=== PATIENT | female | born 1965 | race African-American/Black ===

== ENCOUNTER 2017-07-17 10:37 | Inpatient (IN) | payer OTHER, SELFPAY ==
[2017-07-17] MEDS ORDERED: Nitroglycerin 0.4 MG TAB (25 Tab Bottle) ONE (11:32)
[2017-07-17] MEDS ORDERED: Acetaminophen 500 MG TAB ONE (11:32)
[2017-07-17] MEDS ORDERED: Lidocaine Viscous Sol 2% 15 ml UD Cup ONE (11:32)
[2017-07-17] MEDS ORDERED: Mag-Al 1200 mg/1200 mg/30 ML UDCUP ONE (11:32)
[2017-07-17 11:57] LABS: #Basophils 0.1 thou/uL (0.0-0.2); #Eosinphils 0.1 thou/uL (0.0-0.7); #Lymphocytes 2.5 thou/uL (1.20-3.40); #Monocytes 0.5 thou/uL (0.11-0.59); #Neutrophils 4.1 thou/uL (1.40-6.50); %Basophils 0.9 % (0.0-1.0); %Eosinophils 1.6 % (0.0-10.0); %Lymphocytes 34.3 % (21.0-51.0); %Monocytes 6.4 % (0.0-10.0); Hematocrit 47.1 % (36.0-47.0); Mean Platelet Volume 8.4 fL (7.4-10.4); Red Blood Cell (RBC) Count 5.23 mill/uL (4.20-5.40); White Blood Cell (WBC) Count 7.1 thou/uL (4.8-10.8)
[2017-07-17 12:19] LABS: ALT (SGPT) 8 U/L (8-55); AST (SGOT) 18 U/L (5-34); Alkaline Phosphatase 123 U/L (40-150); Anion Gap 16 mmol/L (10-20); BUN (Urea Nitrogen) 11 mg/dL (9.8-20.1); Bilirubin, Total 0.7 mg/dL (0.2-1.2); CK (CPK) 110 U/L (29-168); Calc. Creatinine Clearance 0 mL/min (70-130); Calcium 9.9 mg/dL (7.8-10.44); Carbon Dioxide 20 mmol/L (22-29); Chloride 108 mmol/L (98-107); Estimated GFR-MDRD Greater than 90; Globulin 3.8 g/dL (2.4-3.5); Lipase 13 U/L (8-78); Protein, Total 7.7 g/dL (6.0-8.3)
--- NOTE | 2017-07-17 13:32 | RAD ---
PORTABLE AP CHEST XRAY: DATE: 07/17/17. HISTORY: Chest pain and burning sensation that started this morning. COMPARISON: 05/08/17. FINDINGS: Dual-lead left subclavian cardiac pacemaking device remains in place. Cardiac silhouette remains en larged. The pulmonary vasculature is within normal limits. There is mild prominence of the pulmona ry vasculature on the prior exam. There has been no other interval change from the prior study. IMPRESSION: 1. No acute cardiopulmonary process. 2. Mild cardiomegaly without overt congestive heart failure. POS: [facility]
[2017-07-17 15:51] LABS: Troponin I Less than 0.010 ng/mL (< 0.028)
[2017-07-17] MEDS ORDERED: ISOVUE-370 76%-LOCM 1 ML ONE (16:46)
[2017-07-17] MEDS ORDERED: Ondansetron HCl/PF 4 MG/2 ML Vial IVP PRN ×2 (16:57→17:02)
[2017-07-17] MEDS ORDERED: Ondansetron ODT 4 MG TAB SL PRN (16:57)
[2017-07-17] MEDS ORDERED: Nitroglycerin 0.4 MG TAB (25 Tab Bottle) PO PRN (17:02)
[2017-07-17] MEDS ORDERED: Morphine Sulfate 2 MG/ML SYRINGE SLOW IVP PRN (17:02)
[2017-07-17 17:09] VITALS: BMI 37.3
[2017-07-17] MEDS ORDERED: Aspirin 300 MG Suppository PR SCH (17:15)
--- NOTE | 2017-07-17 17:38 | CT ---
CONTRAST ENHANCED CT OF THE ABDOMEN AND PELVIS: History: Right lower quadrant pain. Technique: Contrast enhanced CT of the abdomen and pelvis obtained. Coronal reconstructed images wer e performed. Oral contrast was not given. FINDINGS: The lung bases are unremarkable. No evidence of free intraperitoneal air is seen. The liver, spleen, pancreas, gallbladder, adrenal glands and kidneys are unremarkable. No evidence of periaortic lymphadenopathy is seen. A normal appendix is visualized. No dilated loops of small bowel or colon seen. A bulky uterus is pr esent. Right ovary and left ovary are unremarkable. No obvious evidence of diverticulitis seen. No e vidence of significant intraperitoneal abnormalities noted. Normal abdominal aorta and iliac vessels . IMPRESSION: Bulky uterus, otherwise unremarkable contrast enhanced CT images of the abdomen and pelvis. POS: [facility]
[2017-07-17] MEDS: Metoprolol Tartrate 50 MG TAB PO SCH (18:02)
[2017-07-17] MEDS: Atorvastatin Calcium 40 MG TAB PO SCH (18:02)
[2017-07-17 18:50] LABS: Troponin I Less than 0.010 ng/mL (< 0.028)
[2017-07-17] MEDS: Acetaminophen 325 MG TAB PO PRN (21:40)
--- NOTE | 2017-07-18 01:09 | HP ---
HISTORY OF PRESENT ILLNESS: Ms. Ervin is 52-year-old black woman. She came to this facility [facility] today with complaint of chest pain and abdominal pain. She has been experimenting chest pain o n and off for the last 2 weeks or so. There is no association with exercise. She does have associa bill shortness of breath. There is no lightheadedness for the last few days. She has also been expe rimenting some right-sided abdominal pain. She was felt to have possible unstable angina. She was being admitted for management. She denies any diarrhea, denies any vomiting. PAST MEDICAL HISTORY: Remarkable for hypertension, coronary artery disease, previous CVA, chronic k idney disease. She also does have a history of cardiomyopathy and she is status post AICD placement and prior to that she had a pacemaker. PAST SURGICAL HISTORY: No other surgical history. ALLERGIES: She claims to have allergy to LATEX. SOCIAL HISTORY: She does have a past history of cigarette smoking. She quit smoking about 1 year a go. She denies ETOH abuse. She denies drug abuse. FAMILY HISTORY: Reviewed and is not contributory. MEDICATIONS: Prior to admission, she was on minocycline, lisinopril, minoxidil, and amiodarone. Kobe stringer was also on alter medication, which needs to be identified. REVIEW OF SYSTEMS: CONSTITUTIONAL: She denies any fever, denies any weakness. HEENT: She did have some headache. No ocular pain, no sore throat, no rhinorrhea, no earache, no e pistaxis. NECK: No neck pain, no neck stiffness. CARDIOVASCULAR: Admits to shortness of breath, chest pain. PULMONARY: No coughing. GASTROINTESTINAL: Admits to abdominal pain. There is no nausea, no vomiting, no diarrhea. GENITOURINARY: No dysuria, no hematuria. ENDOCRINOLOGY: No heat or cold intolerance. No polyuria, polydipsia or polyphagia. MUSCULOSKELETAL: Admits to arthralgias. HEMATOLOGY: No abnormal bleeding, no ecchymosis. LYMPHATICS: No palpable lymphadenopathy, no painful lymphadenopathy. SKIN: No rash, no itching. ALLERGIES: No hayfever. NEUROLOGICAL: No seizure. She does have a history of peripheral neuropathy. PSYCHIATRIC: No anxiety, no depression. PHYSICAL EXAMINATION: GENERAL: At the current time, she is alert and oriented, in no acute distress. VITAL SIGNS: Show a temperature of 98.3, pulse rate 80, respiratory rate 18, blood pressure 169/94. HEENT: Her head is normocephalic and atraumatic. Both her pupils are equal and reactive. Ears and nose normal. Oral mucosa is moist. Pharyngeal area is clear with no exudate, no hyperemia. NECK: Supple. There is no distention of the jugular vein. No lymphadenopathy felt. Thyroid gland , not palpable. There is no carotid bruit. CHEST: Symmetrical with regular S1, S2. LUNGS: Clear. ABDOMEN: Soft. Bowel sounds are heard. We could not appreciate any organomegaly. She does have s evere tenderness on palpation of the right lower quadrant. EXTREMITIES: Limbs showed no edema. NEUROLOGIC: She moves all extremities. LABORATORY DATA: CBC showed WBC of 7.1, hemoglobin of 15.9, hematocrit of 47.1, MCV of 90.2, platel et of 263. Chemistry and electrolytes are sodium of 114, potassium 4.0, chloride 108, CO2 20, BUN 1 1, creatinine 0.66, glucose 86, and calcium 9.9. Liver enzymes are normal. BNP is 192.5. Cardiac enzymes, one set is negative. Chest x-ray was reported to show mild cardiomegaly without overt leigh ann estive heart failure. There is no acute cardiopulmonary process. ASSESSMENT AND PLAN: This is a 52-year-old black woman with history of hypertension, diabetes melli tus, and chronic kidney disease, CVA, coronary artery disease, status post automated implantab le cardioverter-defibrillator placement in the past, who was admitted with complaint of chest pain. On physical examination, she had significant tenderness on the right lower quadrant. Prior to admi ssion, we will check a CT of the abdomen to exclude any acute event, namely appendicitis versus dive rticulitis. She claims that she has a history of chronic kidney disease; however, her kidney functi on is normal suggesting that she may have had acute kidney injury in the past, which has resolved. She will be admitted after the CT scan of the abdomen is obtained. If negative, she will be admitte d to telemetry for chest pain. We will follow up cardiac enzymes.
[2017-07-18] MEDS: Metoprolol Tartrate 50 MG TAB PO SCH ×2 (08:46→20:08)
[2017-07-18] MEDS: Acetaminophen 325 MG TAB PO PRN ×2 (09:28→20:09)
--- NOTE | 2017-07-18 11:22 | PDOC.PN ---
- Subjective Encounter Start Date: 07/18/17 Encounter Start Time: 11:19 Patient seen and examined. No new complaints. No overnight events. c/o chest soreness with jerky movements. No N/V. Abd pain controlled. - Objective MAR Reviewed: Yes Vital Signs & Weight: Vital Signs (12 hours) Temp Pulse Resp BP BP Pulse Ox 07/18/17 07:48 98.6 F 66 18 07/18/17 07:47 98.6 F 66 18 153/62 H 99 07/18/17 04:05 97.8 F 62 16 174/78 H 100 07/17/17 23:31 98.1 F 62 12 144/69 H 100 Weight Weight 228 lb 3.2 oz I&O: 07/17/17 07/18/17 07/19/17 06:59 06:59 06:59 Intake Total 990 Output Total 550 200 Balance 440 -200 Result Diagrams: 07/17/17 10:59 07/17/17 10:59 Phys Exam - Physical Examination Constitutional: NAD HEENT: sclera anicteric Neck: supple Respiratory: no wheezing, no rales Cardiovascular: RRR Gastrointestinal: soft Musculoskeletal: no edema Neurological: non-focal, moves all 4 limbs Psychiatric: normal affect, A&O x 3 Skin: no rash Dx/Plan (1) Chest pain Code(s): R07.9 - CHEST PAIN, UNSPECIFIED Status: Acute (2) Weakness of left arm Code(s): M62.81 - MUSCLE WEAKNESS (GENERALIZED) Status: Acute (3) HTN (hypertension) Code(s): I10 - ESSENTIAL (PRIMARY) HYPERTENSION Status: Chronic - Plan * . still having chest soreness Stress test negative 2 months back Trop negative will f/u with cardiology for guidance will have pacemaker interrogation. will consider neuro consult if weakness persistent. AM labs.
[2017-07-18 12:11] LABS: #Basophils 0.1 thou/uL (0.0-0.2); #Eosinphils 0.2 thou/uL (0.0-0.7); #Lymphocytes 2.1 thou/uL (1.20-3.40); #Monocytes 0.4 thou/uL (0.11-0.59); %Basophils 0.8 % (0.0-1.0); %Eosinophils 2.9 % (0.0-10.0); %Lymphocytes 30.9 % (21.0-51.0); %Monocytes 5.9 % (0.0-10.0); Hematocrit 44.6 % (36.0-47.0); Mean Platelet Volume 8.6 fL (7.4-10.4); Red Blood Cell (RBC) Count 4.93 mill/uL (4.20-5.40); White Blood Cell (WBC) Count 6.7 thou/uL (4.8-10.8)
[2017-07-18] MEDS: Atorvastatin Calcium 40 MG TAB PO SCH (20:09)
--- NOTE | 2017-07-18 20:57 | CON ---
DATE OF CONSULTATION: 07/18/2017 REFERRING PHYSICIAN: Caitie Franco MD REASON FOR CONSULTATION: Chest pain. HISTORY OF PRESENT ILLNESS: Ms. Ervni is well known 52-year-old black woman, presenting to the em ergency department, complaining of abdominal pain in the right and mid lower quadrant off and on for the last 2 weeks, this has caused her to have intermittent chest pain that has woken her from sleep and seems to be more rhythmic exacerbation of pain that may be associated with her pacer. She seema es any overt ICD discharge, but has a history of ventricular tachycardia. PAST MEDICAL HISTORY: 1. Hypertension. 2. Nonischemic cardiomyopathy with recovery of LV function. 3. Remote history of cerebrovascular accident. 4. Ventricular tachycardia with AICD implant. 5. Chronic kidney disease, stage 2-3. PAST SURGICAL HISTORY: 1. Permanent pacing due to bradycardia with ultimate upgrade to AICD due to DVT. 2. Heart catheterization revealing normal coronary anatomy. ALLERGIES: LATEX. SOCIAL HISTORY: She has a history of tobacco use, smoking cigarettes, but quit about a year ago. S he denies alcohol or illicit drug use. FAMILY HISTORY: Negative with respect to premature atherosclerosis. CURRENT MEDICATIONS: 1. Minocycline daily. 2. Lisinopril daily. 3. Minoxidil daily. 4. Amiodarone. REVIEW OF SYSTEMS: As per the history of present illness, remainder of 12-system review is negative . PHYSICAL EXAMINATION: VITAL SIGNS: Blood pressure is 198/84, pulse 75 and regular, respiratory rate 18 and nonlabored, te mperature 98.5, oxygen saturation 98% on room air. GENERAL: This is a well-developed, obese 52-year-old black female, in no acute distress. She is al ert and oriented x4. She answers questions appropriately. HEENT: Head is atraumatic, normocephalic. Pupils are equally round and reactive, sclerae and conju nctivae are clear. There are no oral lesions. NECK: Supple. No JVD, thyromegaly, or carotid bruits. CHEST: Symmetrical inspiration and expiration. HEART: Regular in rate and rhythm. No murmur, S3, or S4. PMI is nondisplaced, not enlarged. LUNGS: Clear to auscultation in all randall. No adventitious sounds appreciated. ABDOMEN: Soft, nontender, nondistended, without mass or organomegaly. Bowel sounds are present in all 4 quadrants. No flank bruits auscultated. EXTREMITIES: 2+ pulses noted bilaterally in upper and lower extremity, strength is 5/5 bilaterally. There is no clubbing, cyanosis, or edema. NEUROLOGIC: Grossly intact. No focal motor deficits appreciated. DATABASE: EKG reveals sinus rhythm, nonspecific T changes. LABORATORY DATA: CBC reveals a white count of 6, H and H of 14 and 40, platelet count 257,000. Dif ferential white blood cells normal. Red cell indices, normocytic. Electrolytes normal. BUN and creatinine of 11 and 0.6, GFR is estimated greater than 90. LFTs are within normal limits. Serial cardiac enzymes are normal. BNP was mildly elevated at 192. ASSESSMENT: 1. Nonspecific abdominal pain. Workup thus far is negative. 2. Pain with suspicion of pacemaker syndrome or underlying pacer etiology. 3. Hypertension, uncontrolled. 4. History of chronic kidney disease. 5. Sick sinus syndrome with history of bradycardia. 6. Upgrade of pacer 2 automatic implantable cardioverter defibrillator due to deep vein thrombosis. RECOMMENDATIONS: 1. From a cardiac standpoint, she is stable. Interrogation of her AICD shows increased atrial thre shold with evidence of lead dislodgement. This has been reprogrammed to VVI with a rate of 40 and Yessica Alicia with electrophysiology has been consulted. He put her on the schedule for lead revision on Tuesday. 2. No further cardiac testing needs to be pursued as her pain is related to pacemaker dysfunction a nd will be revised as scheduled. Her last catheterization in 2014, showed no evidence of any matson ry artery disease and her LV function on medical therapy has recovered normal. We will follow along from a distance and await atrial lead revision on Tuesday, she will discharge home after this is completed with follow up in the outpatient setting as scheduled. I appreciate the opportunity to pa rtbenjaminate.
[2017-07-19] MEDS: Acetaminophen 325 MG TAB PO PRN ×4 (01:14→20:52)
[2017-07-19 05:09] LABS: Anion Gap 11 mmol/L (10-20); BUN (Urea Nitrogen) 12 mg/dL (9.8-20.1); Calc. Creatinine Clearance 173 mL/min (70-130); Calcium 9.5 mg/dL (7.8-10.44); Carbon Dioxide 24 mmol/L (22-29); Chloride 106 mmol/L (98-107); Estimated GFR-MDRD Greater than 90
[2017-07-19] MEDS: Metoprolol Tartrate 50 MG TAB PO SCH ×2 (09:12→20:52)
--- NOTE | 2017-07-19 11:11 | PDOC.PN ---
- Subjective Encounter Start Date: 07/19/17 Encounter Start Time: 11:09 Patient seen and examined. No new complaints. No overnight events. feels much better. AICD turned off. No chest pain or palpitation. c/o anxiety and insomnia. No N/V/constipation. - Objective MAR Reviewed: Yes Vital Signs & Weight: Vital Signs (12 hours) Temp Pulse Resp BP Pulse Ox 07/19/17 07:43 98.0 F 59 L 20 07/19/17 07:18 98.0 F 62 16 135/64 99 07/19/17 04:02 98.0 F 59 L 20 140/63 99 07/19/17 02:52 96 07/19/17 02:14 64 157/70 H 07/19/17 00:10 69 16 130/60 Weight Weight 228 lb 3.2 oz I&O: 07/18/17 07/19/17 07/20/17 06:59 06:59 06:59 Intake Total 990 1051 Output Total 550 500 Balance 440 551 Result Diagrams: 07/18/17 11:33 07/19/17 03:52 Phys Exam - Physical Examination Constitutional: NAD HEENT: sclera anicteric Neck: supple Respiratory: no wheezing, no rales Cardiovascular: RRR Gastrointestinal: soft Musculoskeletal: no edema Neurological: non-focal, moves all 4 limbs Psychiatric: normal affect Skin: no rash Dx/Plan (1) Chest pain Code(s): R07.9 - CHEST PAIN, UNSPECIFIED Status: Acute (2) Weakness of left arm Code(s): M62.81 - MUSCLE WEAKNESS (GENERALIZED) Status: Acute (3) HTN (hypertension) Code(s): I10 - ESSENTIAL (PRIMARY) HYPERTENSION Status: Chronic (4) AICD lead displacement Code(s): T82.120A - DISPLACEMENT OF CARDIAC ELECTRODE, INITIAL ENCOUNTER Status: Acute (5) Insomnia Code(s): G47.00 - INSOMNIA, UNSPECIFIED Status: Acute - Plan cont current plan of care, DVT proph w/SCDs * . To have lead revision tomorrow. will continue on SCDs while in bed. will add ambien prn for insomnia. AM labs.
[2017-07-19] MEDS ORDERED: Zolpidem Tartrate 5 MG TAB PO PRN (11:12)
[2017-07-19 11:57] LABS: #Basophils 0.1 thou/uL (0.0-0.2); #Eosinphils 0.1 thou/uL (0.0-0.7); #Lymphocytes 2.3 thou/uL (1.20-3.40); #Monocytes 0.5 thou/uL (0.11-0.59); #Neutrophils 4.2 thou/uL (1.40-6.50); %Basophils 0.9 % (0.0-1.0); %Eosinophils 1.9 % (0.0-10.0); %Lymphocytes 31.5 % (21.0-51.0); %Monocytes 7.4 % (0.0-10.0); Hematocrit 45.7 % (36.0-47.0); Mean Platelet Volume 8.2 fL (7.4-10.4); Red Blood Cell (RBC) Count 5.07 mill/uL (4.20-5.40); White Blood Cell (WBC) Count 7.3 thou/uL (4.8-10.8)
[2017-07-19] MEDS ORDERED: Sodium Chloride 0.9% 10 ML ONE (15:56)
[2017-07-19] MEDS: Atorvastatin Calcium 40 MG TAB PO SCH (20:52)
[2017-07-20] MEDS: Metoprolol Tartrate 50 MG TAB PO SCH ×2 (07:59→20:51)
[2017-07-20] MEDS: Acetaminophen 325 MG TAB PO PRN ×2 (08:01→17:28)
[2017-07-20 08:15] LABS: PTT 31.1 SEC (22.9-36.1); Prothrombin Time 13.3 SEC (12.0-14.7)
--- NOTE | 2017-07-20 10:57 | PDOC.CTH ---
Cardiology Progress Note - Subjective No new issues overnight. Tolerating current meds. Scheduled for atrial lead revision with Dr. Alicia today. ROS negative. - Objective Vital Signs Temp Pulse Resp BP Pulse Ox 07/20/17 07:15 98.6 F 64 18 136/64 98 07/20/17 04:00 98.5 F 62 16 107/55 L 96 07/20/17 00:00 98.2 F 69 18 112/54 L 95 Weight 228 lb 9.6 oz 07/19/17 07/20/17 07/21/17 06:59 06:59 06:59 Intake Total 1051 Output Total 500 Balance 551 - Physical Examination General/Neuro: alert & oriented x3, NAD Neck: carotid US brisk, no JVD present Lungs: CTA, unlabored respirations Heart: PMI normal, RRR Abdomen: no HSM, NT/ND, soft Extremities: other: (2+ pulses, no edema) Other PE findings: Neuro: no focal motor defs - Telemetry Telemetry Rhythm: sinus rhythm - Labs Result Diagrams: 07/19/17 11:26 07/19/17 03:52 Troponin/CKMB CK-MB (CK-2) 1.1 ng/mL (0-6.6) 07/17/17 12:20 Troponin I Less than 0.010 ng/mL (< 0.028) 07/17/17 18:02 - Assessment/Plan 1. atrial lead dyslodgement with device malfunction: lead revision today as scheduled. May discharge home per EP recommendations and follow up in office with me in 4-6 weeks. 2. HTN: controlled currently. Continue medical management. 3. CKD, II-III: stable. Continue to monitor. 4. NICM with VT: AICD; stable without recurrent VT seen.
--- NOTE | 2017-07-20 13:35 | PDOC.PN ---
- Subjective Encounter Start Date: 07/20/17 Encounter Start Time: 13:34 Subjective: c/o some headache. no chest pain.some BRYSON - Objective MAR Reviewed: Yes Vital Signs & Weight: Vital Signs (12 hours) Temp Pulse Resp BP Pulse Ox 07/20/17 07:15 98.6 F 64 18 136/64 98 07/20/17 04:00 98.5 F 62 16 107/55 L 96 Weight Weight 228 lb 9.6 oz I&O: 07/19/17 07/20/17 07/21/17 06:59 06:59 06:59 Intake Total 1051 Output Total 500 Balance 551 Result Diagrams: 07/19/17 11:26 07/19/17 03:52 Additional Labs: Laboratory Tests 07/17/17 07/17/17 07/17/17 12:20 15:22 18:02 Troponin I 0.010 Less than 0.010 Less than 0.010 Phys Exam - Physical Examination Constitutional: NAD HEENT: PERRLA, moist MMs, sclera anicteric, oral pharynx no lesions Neck: no nodes, no JVD, supple, full ROM Respiratory: no wheezing, no rales, no rhonchi Cardiovascular: RRR, no significant murmur Gastrointestinal: soft, non-tender, no distention, positive bowel sounds Musculoskeletal: no edema, pulses present Neurological: non-focal, normal sensation, moves all 4 limbs Psychiatric: normal affect, A&O x 3 Skin: no rash Dx/Plan (1) AICD lead displacement Code(s): T82.120A - DISPLACEMENT OF CARDIAC ELECTRODE, INITIAL ENCOUNTER Status: Acute (2) Chest pain Code(s): R07.9 - CHEST PAIN, UNSPECIFIED Status: Resolved (3) Chronic headache Code(s): R51 - HEADACHE Status: Acute (4) GERD (gastroesophageal reflux disease) Code(s): K21.9 - GASTRO-ESOPHAGEAL REFLUX DISEASE WITHOUT ESOPHAGITIS Status: Acute (5) Iron deficiency anemia Code(s): D50.9 - IRON DEFICIENCY ANEMIA, UNSPECIFIED Status: Chronic (6) HTN (hypertension) Code(s): I10 - ESSENTIAL (PRIMARY) HYPERTENSION Status: Chronic (7) History of CVA (cerebrovascular accident) Code(s): Z86.73 - PRSNL HX OF TIA (TIA), AND CEREB INFRC W/O RESID DEFICITS Status: Chronic (8) History of atrial fibrillation Code(s): Z86.79 - PERSONAL HISTORY OF OTHER DISEASES OF THE CIRCULATORY SYSTEM Status: Chronic - Plan DVT proph w/SCDs AICD lead replacement today per EP.remains hemodynamically stable. -: Cardiology following -: AM labs.cont current meds as below * . Review of Systems - Review of Systems Constitutional: Malaise. negative: Fever, Chills, Sweats, Weakness, Other Respiratory: SOB with Excertion. negative: Cough, Dry, Shortness of Breath, Hemoptysis, Pleuritic Pain, Sputum, Wheezing Cardiovascular: negative: Chest Pain, Palpitations, Orthopnea, Paroxysmal Noc. Dyspnea, Edema, Light Headedness, Other Gastrointestinal: negative: Nausea, Vomiting, Abdominal Pain, Diarrhea, Constipation, Melena, Hematochezia, Other Genitourinary: negative: Dysuria, Frequency, Incontinence, Hematuria, Retention , Other Musculoskeletal: negative: Neck Pain, Shoulder Pain, Arm Pain, Back Pain, Hand Pain, Leg Pain, Foot Pain, Other Neurological: negative: Weakness, Numbness, Incoordination, Change in Speech, Confusion, Seizures, Other - Medications/Allergies Allergies/Adverse Reactions: Allergies Allergy/AdvReac Type Severity Reaction Status Date / Time latex Allergy Verified 01/02/17 19:49 latex Allergy Uncoded 01/02/17 19:49 NATURAL RUBBER Allergy Uncoded 01/02/17 19:49 Medications: Current Medications Acetaminophen (Tylenol) 650 mg PO Q4H PRN PRN Reason: Headache/Fever or Pain Last Admin: 07/20/17 08:01 Dose: 650 mg Aspirin (Aspirin Chewable) 81 mg PO DAILY [facility] Last Admin: 07/20/17 07:59 Dose: 81 mg Atorvastatin Calcium (Lipitor) 40 mg PO HS [facility] Last Admin: 07/19/17 20:52 Dose: 40 mg Cefazolin Sodium (Ancef) 2 gm SLOW IVP WILLCALL [facility] Stop: 07/20/17 14:00 Hydralazine HCl (Apresoline) 10 mg SLOW IVP Q4H PRN PRN Reason: SBP GREATER THAN 160 Last Admin: 07/19/17 20:52 Dose: 10 mg Metoprolol Tartrate (Lopressor) 50 mg PO BID [facility] Last Admin: 07/20/17 07:59 Dose: 50 mg Morphine Sulfate (Morphine Sulfate) 2 mg SLOW IVP Q4H PRN PRN Reason: Pain Nitroglycerin (Nitrostat) 0.4 mg PO Q5MIN PRN PRN Reason: Chest Pain Ondansetron HCl (Zofran) 4 mg IVP Q6H PRN PRN Reason: Nausea/Vomiting Sodium Chloride (Flush - Normal Saline) 10 ml IVF PRN PRN PRN Reason: Saline Flush Zolpidem Tartrate (Ambien) 5 mg PO HSPRN PRN PRN Reason: Insomnia Last Admin: 07/19/17 20:56 Dose: 5 mg
[2017-07-20] MEDS ORDERED: Iopamidol 370 76% 50 ML VIAL FS ONE (14:05)
[2017-07-20] MEDS ORDERED: Midazolam HCl 2 mg/2 ml Vial ONE (14:56)
[2017-07-20] MEDS ORDERED: Fentanyl 100 MCG/2 ML VIAL ONE (14:57)
[2017-07-20] MEDS ORDERED: Diprivan 20 ML ONE ×2 (15:45→16:11)
[2017-07-20] MEDS ORDERED: Silver Sulfadiazine 1% Cream 50 GM JAR TOP PRN (17:33)
[2017-07-20] MEDS ORDERED: Acetaminophen 325 MG TAB PO PRN (17:33)
[2017-07-20] MEDS ORDERED: Bisacodyl 10 MG SUPP PR PRN (17:33)
[2017-07-20] MEDS ORDERED: Bisacodyl 5 MG TAB PO PRN (17:33)
[2017-07-20] MEDS ORDERED: Ondansetron HCl/PF 4 MG/2 ML Vial IVP PRN (17:33)
[2017-07-20] MEDS ORDERED: traMADol HCl 50 MG TAB PO PRN (17:33)
[2017-07-20] MEDS ORDERED: Mag-Al 1200 mg/1200 mg/30 ML UDCUP PO PRN (17:33)
[2017-07-20] MEDS ORDERED: Temazepam 15 MG CAP PO PRN (17:33)
[2017-07-20] MEDS ORDERED: diphenhydrAMINE HCl 25 MG CAP PO PRN (17:33)
[2017-07-20] MEDS ORDERED: Nitroglycerin 0.4 MG TAB (25 Tab Bottle) SL PRN (17:33)
[2017-07-20] MEDS ORDERED: Acetaminophen/Codeine 30-300mg Tablet PO PRN ×2 (17:45)
--- NOTE | 2017-07-20 18:12 | PRG ---
DATE OF SERVICE: 07/20/2017 SUBJECTIVE: Ms. Ervin is doing well today. Her symptoms of diaphragmatic pacing have resolved af ter changing her pacemaker interrogation. OBJECTIVE: VITAL SIGNS: Blood pressure 136/63, heart rate 57, respiration is 18, temperature 97.5 degrees Fahr enheit. GENERAL: She is alert and oriented woman in no apparent distress. NECK: Supple. Jugular veins not distended. CHEST: Coarse without crackles. CARDIOVASCULAR: Heart sounds are regular to rate and rhythm. No murmur or gallop. ABDOMEN: Benign. Bowel sounds positive. EXTREMITIES: Lower extremities without edema, clubbing or cyanosis. DATABASE: EKG is reviewed, reveals sinus rhythm, deviated conduction. ASSESSMENT AND PLAN: Ms. Ervin is a pleasant 52-year-old woman with prior history of syncope, par oxysmal atrial fibrillation, history of the rapid ventricular rate, now on amiodarone with a dual-ch tanja implantable cardioverter defibrillator in place. She had no significant movement of her defib rillator device and her right atrial lead now has retracted to the superior vena cava, with revision of this right atrial lead today. DISPOSITION: Risks, benefits were discussed with the patient and family. They understand and willi ng to proceed. We will schedule in near date.
[2017-07-20] MEDS: Atorvastatin Calcium 40 MG TAB PO SCH (20:51)
--- NOTE | 2017-07-20 21:55 | RAD ---
PORTABLE AP CHEST X-RAY 07/20/17 HISTORY: Pacemaker revision. COMPARISON: 07/17/17 FINDINGS: Left subclavian cardiac pacemaking device is noted in place with RA and RV leads. Evaluation for pne umothorax on this exam is difficult due to technique of the study, but no obvious pneumothorax is ap preciated. There is no pleural effusion present. The cardiac silhouette remains enlarged. No other i nterval change. IMPRESSION: 1. No acute cardiopulmonary process. 2. Left subclavian AICD device noted in place. No obvious pneumothorax is appreciated. 3. Cardiomegaly with left ventricular configuration. POS: [facility]
--- NOTE | 2017-07-21 01:04 | OP ---
ICD INTERROGATION REPORT DATE OF SERVICE: 07/18/2017 REASON FOR INTERROGATION: Possible diaphragmatic stimulation with pacing ICD malfunction. Interrogation revealed [employer] [address] dual chamber pacemaker defibrillator battery volt ages with estimated longevity of 5.7 years. The lead parameters are abnormal with output. Th e sensing was not obtained properly, it is very low. Lead impedance 450 ohms, ventricular capture t hreshold is 2.5 volts at 0.3 milliseconds, sensing 11.7 millivolts, impedance 360 ohms. Current pro gramming 130 beats per minute. One ventricular tachycardia episode is noted with a single ATP delivered since last interrogation in 01/2017, also couple of SVT episodes are documented, high-vol tage coil impedance seems to be stable. No definite atrial fibrillation seen documented by the device. ASSESSMENT AND PLAN: This is a dual chamber ICD with undersensing and poor capture of the right atr ial lead, which supposed to suggest macro-dislodgement. lead function is superadequate with n o recent ventricular arrhythmias documented. Likely lead revision will be required.
[2017-07-21] MEDS: Metoprolol Tartrate 50 MG TAB PO SCH (10:23)
[2017-07-21 12:58] VITALS: BP 186/84; TEMP 98.3
--- NOTE | 2017-07-21 13:25 | PDOC.PN ---
- Subjective Encounter Start Date: 07/21/17 Encounter Start Time: 13:24 Subjective: feels much better .some pain at the surgical site.requesting arm sling - Objective MAR Reviewed: Yes Vital Signs & Weight: Vital Signs (12 hours) Temp Pulse Resp BP BP Pulse Ox 07/21/17 12:55 98.3 F 79 16 186/84 H 100 07/21/17 08:00 97.5 F L 73 18 147/72 H 98 07/21/17 04:00 97.6 F 80 20 136/60 97 Weight Weight 225 lb 4.8 oz I&O: 07/20/17 07/21/17 07/22/17 06:59 06:59 06:59 Intake Total 360 Balance 360 Result Diagrams: 07/19/17 11:26 07/19/17 03:52 Phys Exam - Physical Examination Constitutional: NAD HEENT: PERRLA, moist MMs, sclera anicteric, TM's clear, oral pharynx no lesions , 2+ tonsils Neck: no nodes, no JVD, supple, full ROM Respiratory: no wheezing, no rales, no rhonchi, clear to auscultation bilateral Cardiovascular: RRR, no significant murmur, no rub, gallop surgical site looks good w some oozing Gastrointestinal: soft, non-tender, no distention, positive bowel sounds Musculoskeletal: no edema, pulses present Neurological: non-focal, normal sensation, moves all 4 limbs Psychiatric: normal affect, A&O x 3 Skin: no rash Dx/Plan (1) AICD lead displacement Code(s): T82.120A - DISPLACEMENT OF CARDIAC ELECTRODE, INITIAL ENCOUNTER Status: Acute Comment: s/p Repositioning (2) Chest pain Code(s): R07.9 - CHEST PAIN, UNSPECIFIED Status: Resolved (3) Chronic headache Code(s): R51 - HEADACHE Status: Acute (4) GERD (gastroesophageal reflux disease) Code(s): K21.9 - GASTRO-ESOPHAGEAL REFLUX DISEASE WITHOUT ESOPHAGITIS Status: Acute (5) Iron deficiency anemia Code(s): D50.9 - IRON DEFICIENCY ANEMIA, UNSPECIFIED Status: Chronic (6) HTN (hypertension) Code(s): I10 - ESSENTIAL (PRIMARY) HYPERTENSION Status: Chronic (7) History of CVA (cerebrovascular accident) Code(s): Z86.73 - PRSNL HX OF TIA (TIA), AND CEREB INFRC W/O RESID DEFICITS Status: Chronic (8) History of atrial fibrillation Code(s): Z86.79 - PERSONAL HISTORY OF OTHER DISEASES OF THE CIRCULATORY SYSTEM Status: Chronic - Plan DVT proph w/SCDs resume home meds.Hemodynamically stable. -: DC home .cleared by EP.OP f/u in 2 weeks. * . Review of Systems - Review of Systems Constitutional: negative: Fever, Chills, Sweats, Weakness, Malaise, Other Respiratory: negative: Cough, Dry, Shortness of Breath, Hemoptysis, SOB with Excertion, Pleuritic Pain, Sputum, Wheezing Cardiovascular: negative: Chest Pain, Palpitations, Orthopnea, Paroxysmal Noc. Dyspnea, Edema, Light Headedness, Other Gastrointestinal: negative: Nausea, Vomiting, Abdominal Pain, Diarrhea, Constipation, Melena, Hematochezia, Other Genitourinary: negative: Dysuria, Frequency, Incontinence, Hematuria, Retention , Other Musculoskeletal: negative: Neck Pain, Shoulder Pain, Arm Pain, Back Pain, Hand Pain, Leg Pain, Foot Pain, Other Skin: negative: Rash, Lesions, Roland, Bruising, Other Neurological: negative: Weakness, Numbness, Incoordination, Change in Speech, Confusion, Seizures, Other - Medications/Allergies Allergies/Adverse Reactions: Allergies Allergy/AdvReac Type Severity Reaction Status Date / Time latex Allergy Verified 01/02/17 19:49 latex Allergy Uncoded 01/02/17 19:49 NATURAL RUBBER Allergy Uncoded 01/02/17 19:49 Medications: Current Medications Acetaminophen (Tylenol) 650 mg PO Q4H PRN PRN Reason: Mild Pain 1-3 Acetaminophen/Codeine Phosphate (Tylenol #3) 1 tab PO Q4H PRN PRN Reason: Mild Pain (1-3) Last Admin: 07/20/17 20:52 Dose: 1 tab Acetaminophen/Codeine Phosphate (Tylenol #3) 2 tab PO Q4H PRN PRN Reason: Moderate Pain (4-6) Al Hydroxide/Mg Hydroxide (Maalox) 15 ml PO Q4H PRN PRN Reason: Heartburn or Indigestion Aspirin (Aspirin Chewable) 81 mg PO DAILY [facility] Last Admin: 07/21/17 10:23 Dose: 81 mg Atorvastatin Calcium (Lipitor) 40 mg PO HS [facility] Last Admin: 07/20/17 20:51 Dose: 40 mg Bisacodyl (Dulcolax) 5 mg PO DAILYPRN PRN PRN Reason: CONSTIAPT Bisacodyl (Dulcolax) 10 mg DE DAILYPRN PRN PRN Reason: Constipation Cefazolin Sodium (Ancef) 2 gm SLOW IVP WILLCALL [facility] Stop: 07/21/17 19:46 Diphenhydramine HCl (Benadryl) 25 mg PO Q6H PRN PRN Reason: Itching Hydralazine HCl (Apresoline) 10 mg SLOW IVP Q4H PRN PRN Reason: SBP GREATER THAN 160 Last Admin: 07/19/17 20:52 Dose: 10 mg Metoprolol Tartrate (Lopressor) 50 mg PO BID [facility] Last Admin: 07/21/17 10:23 Dose: 50 mg Morphine Sulfate (Morphine Sulfate) 2 mg SLOW IVP Q4H PRN PRN Reason: Pain Nitroglycerin (Nitrostat) 0.4 mg SL Q5MIN PRN PRN Reason: Chest Pain Ondansetron HCl (Zofran) 4 mg IVP Q6H PRN PRN Reason: Nausea/Vomiting Silver Sulfadiazine (Silvadene) 0 gm TOP Q12H PRN PRN Reason: Rash/Topical Irritation Sodium Chloride (Flush - Normal Saline) 10 ml IVF PRN PRN PRN Reason: Saline Flush Last Admin: 07/21/17 10:24 Dose: 10 ml Temazepam (Restoril) 15 mg PO HSPRN PRN PRN Reason: Insomnia Last Admin: 07/20/17 20:51 Dose: 15 mg Tramadol HCl (Ultram) 50 mg PO Q4H PRN PRN Reason: FOR MODERATE PAIN 4-6 Zolpidem Tartrate (Ambien) 5 mg PO HSPRN PRN PRN Reason: Insomnia Last Admin: 07/19/17 20:56 Dose: 5 mg
--- NOTE | 2017-07-21 18:17 | PRG ---
DATE OF SERVICE: 07/21/2017: This is a followup note and ICD interrogation report. Ms. Ervin seems to be doing well after her ICD revision. OBJECTIVE: VITAL SIGNS: Blood pressure is 147/72, heart rate 73, respirations 18, temperature 97.5 degrees Fah renheit. GENERAL: Alert and oriented woman with markedly elevated BMI, in no apparent distress. NECK: Supple. Jugular veins not distended. CHEST: Coarse without crackles. Left precordial pacemaker insertion site is without reaction, mini mal stain on the 4x4 covering the wound is noted. No hematoma noted. ABDOMEN: Benign, bowel sounds positive. EXTREMITIES: Lower extremities without edema, clubbing or cyanosis. DATABASE: The chest x-ray from 07/20/2017 reveals no pneumothorax. Interrogation of her device reveals a [employer] dual chamber pacemaker defibrillat or battery voltage is still adequate with estimated longevity of 5.3-7.9 years. Lead parameters are capture threshold in the new atrial lead was 0.5 volts at 0.5 milliseconds and the old RV lead 1.25 volts at 1.5 milliseconds. The sensing 4.3 millivolts in the atrium and 11.4 millivolts in the rig ht ventricle. Impedance 660 ohms and 360 ohms respectively. The patient was 2.4% atrially paced. CONCLUSION: Adequate functioning dual chamber pacemaker defibrillator, one day post right atrial le ad revision.
--- NOTE | 2017-07-21 20:29 | DIS ---
DATE OF ADMISSION: 07/17/2017 DATE OF DISCHARGE: 07/21/2017 PRIMARY CARE PHYSICIAN: Lyndsey Mohamud M.D. CONDITION AT THE TIME OF DISCHARGE: Stable and improved. DISCHARGE DIAGNOSES: Chest pain due to dislodgement of atrial lead of the automatic implantable car dioverter defibrillator, status post replacement. SECONDARY DISCHARGE DIAGNOSES: 1. Hypertension. 2. History of coronary artery disease. 3. History of cerebrovascular accident. 4. History of cardiomyopathy, status post automatic implantable cardioverter defibrillator placemen t. CONSULTATIONS IN HOSPITAL: Include Cardiology, Dr. Leonardo Patton and Electrophysiology, Dr. Alicia. PROCEDURES DONE IN THE HOSPITAL: Include CT scan of the abdomen and pelvis, which showed bulky uter us, otherwise unremarkable for any acute changes. Transthoracic echocardiogram, which shows EF at 50% to 55% in diastolic dysfunction and concentric l eft ventricular hypertrophy. Repositioning of the right atrial lead of the AICD. DISCHARGE MEDICATIONS: Resume home medications as follows, amlodipine 10 mg daily, Protonix 40 mg d aily, sublingual nitroglycerin as needed, minoxidil 10 mg p.o. daily, lisinopril 40 mg daily, Neuron tin 300 mg p.o. t.i.d., Prozac 40 mg daily, chlorthalidone 25 mg daily, atorvastatin 80 mg daily, as pirin 81 mg daily, amiodarone 200 mg p.o. b.i.d., Tylenol as needed. ADMISSION HISTORY: Ms. Ervin is a pleasant 52-year-old -[place] female with past medical history of coronary artery disease and cardiomyopathy with AICD in place, who presented to the emerg ency room with complaints of chest pain and abdominal pain. Upon presentation, she was hemodynamica lly stable. Chest x-ray showed cardiomegaly without any CHF and cardiac enzymes initially were nega tive. She was admitted for further workup. She underwent a CT scan of the abdomen and pelvis for h er complaints of abdominal and chest pain, which was unremarkable. HOSPITAL COURSE: The patient continued to have chest pain and cardiac enzymes were negative. For t his reason, Cardiology was consulted and pacemaker interrogation was also ordered. Dr. Leonardo Patton from Cardiology team saw the patient and found out that the patient had atrial lead dislodgement wi th device malfunction. EP was consulted and Dr. Alicia saw the patient and fixed the misplaced lead o n 07/20/2017. The patient tolerated the procedure very well and was observed overnight and a chest x-ray was performed after the procedure, which was normal. She was seen and examined on the day of discharge and is feeling well and is eager to go home. She is hemodynamically stable and has been cleared by Dr. Alicia for discharge with outpatient followup. She will resume her home medications and will be seen by Cardiology as well as Electrophysiology as an outpatient. Outpatient cardiac rehabilitation has been arranged for the patient. The patient was seen and examined prior to discharge. Please see hospitalist progress note from alejandro romero's date for further detail including [id number] interaction.
== END 2017-07-21 14:54 | disposition home or self-care (01) | DRG 261 ==
LOC: ERS 10:37 → 2SW 17:00 → OBSVTOIN 17:00 → 2NO 07-19 12:50
PROVIDERS: ADMIT Hospitalist; ATTEND Hospitalist
PROC: 4B02XTZ Measurement of Cardiac Defibrillator, External Approach (ICD-10-PCS; principal; 2017-07-18)
PROC: 02WA3MZ Revision of Cardiac Lead in Heart, Percutaneous Approach (ICD-10-PCS; 2017-07-20)
DX: T82.118A Breakdown (mechanical) of other cardiac electronic device, initial encounter (principal); I42.9 Cardiomyopathy, unspecified; N18.3 Chronic kidney disease, stage 3 (moderate); I25.10 Atherosclerotic heart disease of native coronary artery without angina pectoris; I48.0 Paroxysmal atrial fibrillation; Z86.73 Personal history of transient ischemic attack (TIA), and cerebral infarction without residual deficits; Z87.891 Personal history of nicotine dependence; I12.9 Hypertensive chronic kidney disease with stage 1 through stage 4 chronic kidney disease, or unspecified chronic kidney disease; D50.9 Iron deficiency anemia, unspecified; K21.9 Gastro-esophageal reflux disease without esophagitis; R51 Headache; G47.00 Insomnia, unspecified; Z86.718 Personal history of other venous thrombosis and embolism
CPT/HCPCS: 33216; 33244; 36005; 36415; 71010; 74177; 75820; 80048; 80053; 80061; 82550; 82553; 83690; 83880; 84484; 85025; 85610; 85730; 93005; 93306; 93640; 93798; 94760; 96374; A4216; J0360; J2250; J2270; J2704; J3010; J3490

== ENCOUNTER 2018-04-13 09:09 | Emergency (ER) | payer OTHER, SELFPAY ==
[2018-04-13 10:05] LABS: #Eosinphils 0.1 thou/uL (0.0-0.7); #Lymphocytes 2.2 thou/uL (1.20-3.40); #Monocytes 0.4 thou/uL (0.11-0.59); #Neutrophils 3.7 thou/uL (1.40-6.50); %Basophils 0.7 % (0.0-1.0); %Eosinophils 0.8 % (0.0-10.0); %Lymphocytes 34.7 % (21.0-51.0); %Monocytes 5.9 % (0.0-10.0); %Neutrophils 57.8 % (42.0-75.0); Hemoglobin 15.5 g/dL (12.0-16.0); Mean Corpuscular HGB CONC 34.2 g/dL (32.0-36.0); Mean Corpuscular Hemoglobin 30.3 pg (27.0-31.0); Mean Corpuscular Volume 88.3 fL (78.0-98.0); Mean Platelet Volume 8.2 fL (7.4-10.4); Platelet Count 260 thou/uL (130-400); RBC Distribution Width 11.6 % (11.5-14.5); Red Blood Cell (RBC) Count 5.14 mill/uL (4.20-5.40); White Blood Cell (WBC) Count 6.3 thou/uL (4.8-10.8)
[2018-04-13 10:19] LABS: CKMB 1.1 ng/mL (0-6.6); Troponin I Less than 0.010 ng/mL (< 0.028)
[2018-04-13 10:21] LABS: ALT (SGPT) 9 U/L (8-55); AST (SGOT) 16 U/L (5-34); Albumin 3.9 g/dL (3.5-5.0); Alkaline Phosphatase 97 U/L (40-150); Anion Gap 12 mmol/L (10-20); BUN (Urea Nitrogen) 10 mg/dL (9.8-20.1); Bilirubin, Total 0.5 mg/dL (0.2-1.2); CK (CPK) 74 U/L (29-168); Calc. Creatinine Clearance 0 mL/min (70-130); Calcium 9.8 mg/dL (7.8-10.44); Carbon Dioxide 22 mmol/L (22-29); Chloride 106 mmol/L (98-107); Estimated GFR-MDRD Greater than 90; Globulin 3.7 g/dL (2.4-3.5); Glucose 112 mg/dL (70-105); Potassium 4.1 mmol/L (3.5-5.1); Protein, Total 7.6 g/dL (6.0-8.3); Sodium 136 mmol/L (136-145)
--- NOTE | 2018-04-13 10:57 | RAD ---
CHEST 1 VIEW: HISTORY: Chest pain. Dyspnea. COMPARISON: 07/17/17. FINDINGS: Cardiac silhouette magnified and enlarged. Pulmonary vasculature is unremarkable. Mediastinum is mi dline with dual-lead left subclavian cardiac electronic device. No lobar consolidation or evidence o f pneumothorax. monitor tech leads overlie the chest. IMPRESSION: Cardiomegaly. Stable. POS: [facility]
--- NOTE | 2018-04-13 11:49 | CT ---
CT HEAD WITHOUT CONTRAST: Date: 04-13-18 Comparison: 01-02-17 History: Injury, syncope, fall, pain. Technique: Serial axial CT imaging at 5 mm intervals from vertex through skull base without contrast. FINDINGS: The visualized paranasal sinuses and mastoid air cells are well aerated. There is no displaced calvar ial fracture. No intracranial hemorrhage, midline shift, mass effect or ventricular enlargement is se en. IMPRESSION: No acute findings. Stable head CT. POS: [facility]
[2018-04-13] MEDS ORDERED: cloNIDine 0.1 MG TAB ONE (12:32)
[2018-04-13 14:20] LABS: Troponin I Less than 0.010 ng/mL (< 0.028)
[2018-04-13] MEDS ORDERED: hydrALAZINE 20 MG/ML VIAL ONE (14:27)
[2018-04-13] MEDS ORDERED: Acetaminophen 500 MG TAB ONE (16:15)
== END 2018-04-13 16:27 | disposition home or self-care (01) ==
LOC: ERS 09:09
DX: I10 Essential (primary) hypertension (principal); D50.9 Iron deficiency anemia, unspecified; I50.9 Heart failure, unspecified; I25.2 Old myocardial infarction; I48.91 Unspecified atrial fibrillation; Z79.899 Other long term (current) drug therapy; Z79.82 Long term (current) use of aspirin; Z86.73 Personal history of transient ischemic attack (TIA), and cerebral infarction without residual deficits; Z79.891 Long term (current) use of opiate analgesic
CPT/HCPCS: 36415; 70450; 71045; 80053; 82550; 82553; 83880; 84484; 85025; 93005; 94760; 96374; J0360

== ENCOUNTER 2019-03-09 04:21 | Outpatient (CLI) | payer MEDICARE ==
[2019-03-09 09:43] LABS: Hemoglobin 14.7 g/dL (12.0-16.0); Mean Corpuscular HGB CONC 33.4 g/dL (32.0-36.0); Mean Corpuscular Hemoglobin 29.7 pg (27.0-31.0); Mean Platelet Volume 8.9 fL (7.4-10.4); Platelet Count 247 thou/uL (130-400); RBC Distribution Width 11.4 % (11.5-14.5); Red Blood Cell (RBC) Count 4.96 mill/uL (4.20-5.40); White Blood Cell (WBC) Count 6.7 thou/uL (4.8-10.8)
[2019-03-09 09:53] LABS: INR-International Normal Ratio 1.1; PTT 35.9 SEC (22.9-36.1); Prothrombin Time 14.7 SEC (12.0-14.7)
[2019-03-09 10:05] LABS: Anion Gap 10 mmol/L (10-20); BUN (Urea Nitrogen) 10 mg/dL (9.8-20.1); Calc. Creatinine Clearance 0 mL/min (70-130); Calcium 9.7 mg/dL (7.8-10.44); Carbon Dioxide 28 mmol/L (22-29); Chloride 106 mmol/L (98-107); Estimated GFR-MDRD Greater than 90; Glucose 100 mg/dL (70-105); Sodium 140 mmol/L (136-145)
--- NOTE | 2019-03-10 10:02 | EKG ---
Test Reason : Blood Pressure : / mmHG Vent. Rate : 066 BPM Atrial Rate : 066 BPM P-R Int : 164 ms QRS Dur : 088 ms QT Int : 416 ms P-R-T Axes : 057 -16 036 degrees QTc Int : 436 ms Normal sinus rhythm Minimal voltage criteria for LVH, may be normal variant Septal infarct , age undetermined Nonspecific ST-T changes Abnormal ECG When compared with ECG of 13-APR-2018 13:48, Nonspecific T wave abnormality, worse in Inferior leads T wave inversion no longer evident in Lateral leads Confirmed by DR. Finesse STEVENSON ([id number]) on 03/10/2019 10:02:08 AM Referred By: KURT Confirmed By:DR. Finesse STEVENSON
== END 2019-03-09 04:22 | disposition home or self-care (01) ==
LOC: LABBT 04:21
PROVIDERS: ATTEND Internal Medicine Cardiovascular Disease
DX: Z01.818 Encounter for other preprocedural examination (principal); I48.91 Unspecified atrial fibrillation
CPT/HCPCS: 80048; 85027; 85610; 85730; 93005; 93010

== ENCOUNTER 2019-03-12 05:34 | Observation (INO) | payer MEDICARE ==
[2019-03-09 09:21] VITALS: BMI 38.9
[2019-03-12] MEDS ORDERED: Heparin 10,000 UNITS/1 ML VIAL ONE ×2 (08:34→11:04)
[2019-03-12] MEDS ORDERED: Isoproterenol 0.2 MG/1 ML AMP ONE ×2 (08:34→11:37)
[2019-03-12] MEDS ORDERED: Fentanyl 100 MCG/2 ML VIAL ONE ×2 (08:45→09:10)
[2019-03-12] MEDS ORDERED: Phenylephrine HCL 10 MG/ML VIAL ONE (09:27)
[2019-03-12] MEDS ORDERED: Heparin 25,000 units/D5W 500 ML ONE (11:03)
[2019-03-12] MEDS ORDERED: Protamine Sulfate 50 MG/5 ML VIAL ONE (12:08)
[2019-03-12] MEDS ORDERED: Ondansetron PF 4 MG/2 ML Vial ONE (12:56)
[2019-03-12] MEDS ORDERED: PHENYLEPHRINE-NS 100 MCG/ML 10 ML SYRINGE ONE (12:56)
[2019-03-12] MEDS ORDERED: Rocuronium Bromide 10 MG/ML (10ML VIAL) ONE (12:56)
[2019-03-12] MEDS ORDERED: Heparin 30,000 units/30 ml VIAL ONE (12:56)
[2019-03-12] MEDS ORDERED: Glycopyrrolate 0.2 MG/ML 5 ML SYRINGE ONE (12:56)
[2019-03-12] MEDS ORDERED: ePHEDrine 50 MG/ML VIAL ONE (12:56)
[2019-03-12] MEDS ORDERED: PROPOFOL 200 MG/20 ML VIAL ONE (12:56)
--- NOTE | 2019-03-12 13:36 | OP ---
DATE OF PROCEDURE: 03/12/2019 DESCRIPTION OF PROCEDURE: Electrophysiology study and radiofrequency ablation. REASON FOR PROCEDURE: Ms. Ervin is a 53-year-old woman with history of paroxysmal atrial fibrillation and ventricular tachycardia with high-dose amiodarone 400 mg a day. We are attempting to wean her off amiodarone, and she is here for a pulmonary venous isolation procedure/EP study. DESCRIPTION OF PROCEDURE: The patient received propofol by Anesthesia specialist. After adequate level of sedation achieved, the left and right femoral venous area was prepped, draped, and anesthetized using subcutaneous lidocaine. With ultrasound guidance, both veins were cannulated x2 on the left side. An 11-Hungarian sheath was used to introduce an intracardiac echo probe, which was used to monitor transseptal procedure as well as hemodynamics throughout the case. Also, on the left, a Preface sheath was used to advance a Duo-Decapolar catheter into the right atrium and the CS position. On the right side, initially two 8-Hungarian short sheath was introduced and through this, a ThermoCool SFST catheter was used to take 3D image of the right atrium and CS and His bundle positions. Following that, transseptal punctures were obtained x2 under ice and fluoroscopy monitoring after heparin bolus was given. Heparin was monitored with the regular ACTs and adjusted to keep ACT towards 350 throughout the case. Following that, the SL1 sheath was used to perform the transseptal punctures and through these, a ThermoCool SFST catheter and a 20- pole Lasso catheter was advanced to the left atrium. Pulmonary venous isolation/posterior wall isolation was performed successfully. An esophageal temperature probe was used to monitor the esophageal temperature to avoid excessive heating. In the end of the case, basic EP study was performed. Catheter was advanced to the left ventricle and left ventricular pacing was performed, achieving VA block at 480 milliseconds. Central concentric retrograde VA conduction was seen. Ventricular extrastimuli testing was performed using [address] train with up to 3 ventricular extrastimuli, which was decremented due to refractory. Ventricular ERP was measured to be 600/300/240/200. At this point, Isuprel was administered and any reconnections from the veins in the posterior wall were re-ablated. The Isuprel was administered at 20 mcg per minute. Total ablation time 17 minutes@ 40W. No ventricular tachycardia and no sustained atrial arrhythmia were induced in the end of the case. Catheter was pulled to the left side. The effusion was checked by ultrasound and cine. The patient tolerated the procedure well. In the end, the heparin was stopped and reversed with protamine. The catheter was pulled in the bottle labeler and Vascade closure was performed. The patient tolerated the procedure well. No complications noted. CONCLUSION: 1. Successful pulmonary venous isolation procedure. 2. No inducible ventricular tachycardia by standard ventricular access to my testing protocol up to 3 ventricular extrastimuli. 3. Normal sinus and AV ambika function. 4. No evidence of accessory pathway. 5. AV jump only observed before the block. No dual AV ambika physiology. 6. ICD function was rechecked in the end of the case, found to be adequate/ unchanged. PLAN: Resume anticoagulation and continue monitoring for returning of recurrent arrhythmias. Hold amiodarone as recurrent ventricular atrial arrhythmias makes it necessary. Job ID: [id number] MTDD
[2019-03-12] MEDS ORDERED: cloNIDine 0.1 MG TAB PO PRN (15:47)
[2019-03-12] MEDS ORDERED: Cyclobenzaprine 10 MG TAB PO PRN (15:50)
[2019-03-12] MEDS ORDERED: Nitroglycerin 4.9 GM Bottle SL PRN (15:52)
[2019-03-12] MEDS ORDERED: Acetaminophen/Codeine 30-300mg Tablet PO PRN ×2 (16:00)
[2019-03-12] MEDS ORDERED: Rivaroxaban 10 MG TAB PO SCH (18:00)
[2019-03-12] MEDS: Topiramate 25 MG TAB PO SCH (20:27)
[2019-03-12] MEDS: Atenolol 50 MG TAB PO SCH (20:27)
[2019-03-12] MEDS: Docusate 100 MG CAP PO SCH (20:28)
[2019-03-12] MEDS: Carvedilol 6.25 MG TAB PO SCH (20:28)
[2019-03-12] MEDS: Minoxidil 10 MG TAB PO SCH (20:32)
[2019-03-13 08:33] VITALS: BP 129/70; TEMP 98.1
[2019-03-13] MEDS: Carvedilol 6.25 MG TAB PO SCH (08:48)
[2019-03-13] MEDS: Topiramate 25 MG TAB PO SCH (08:48)
[2019-03-13] MEDS: Atenolol 50 MG TAB PO SCH (08:49)
[2019-03-13] MEDS: Docusate 100 MG CAP PO SCH (08:49)
[2019-03-13] MEDS ORDERED: Lisinopril 20 MG TAB PO SCH (09:00)
[2019-03-13] MEDS ORDERED: FLUoxetine HCl 20 MG CAP PO SCH (09:00)
[2019-03-13] MEDS ORDERED: Amlodipine 10 MG TAB PO SCH (09:00)
[2019-03-13] MEDS ORDERED: Aspirin 81 mg Enteric Coated Tablet PO SCH (09:00)
[2019-03-13] MEDS: Minoxidil 10 MG TAB PO SCH (10:01)
--- NOTE | 2019-03-14 10:35 | DIS ---
DATE OF ADMISSION: 03/12/2019 DATE OF DISCHARGE: 03/13/2019 DIAGNOSES: Atrial fibrillation and ventricular tachycardia. PROCEDURES PERFORMED: Comprehensive electrophysiology study with 3-dimensional mapping and radiofrequency ablation. 17 minutes RF energy lesions were delivered, noninducible for ventricular tachycardia. Successful PVI procedure. Normal sinus and AV ambika function. No evidence of accessory pathway. No dual AV ambika physiology. Normal functioning ICD at the end of the case. COMPLICATIONS: None. HISTORY OF PRESENT ILLNESS: Ms. Ervin is a 53-year-old woman with a history of paroxysmal atrial fibrillation and ventricular tachycardia in spite of high-dose amiodarone. She has been weaned off her amiodarone and was admitted for an elective outpatient pulmonary venous isolation procedure and electrophysiology study. Ablation details as above. The patient feels well postablation. She has remained stable overnight as well as other than there have not been any recurrences of ventricular tachycardia by telemetry review. SUBJECTIVE: The patient denies heart racing, palpitations, chest pain, pressure, syncope, near syncope, stroke, stroke-like symptoms, blood in her urine, blood in her stool, bleeding at the groin sites, shortness of breath, or difficulty urinating. REVIEW OF SYSTEMS: An 8-point review of systems is negative except that listed above. OBJECTIVE: VITAL SIGNS: Temperature 98.1, pulse 78, blood pressure 129/70, respirations 16, oxygen is 96% on room air. GENERAL: The patient is alert and oriented. Speech is clear. Affect is appropriate. NEUROLOGIC: Grossly intact and nonfocal. LUNGS: Clear to auscultation bilaterally. HEART: Tones are irregularly irregular with crisp S1 and S2. ABDOMEN: Obese, soft, and nontender. Mildly positive hepatojugular reflux. EXTREMITIES: Warm and dry to touch without clubbing, cyanosis, or edema. Gait was stable. DATABASE: Telemetry and EKGs now reviewed and showed ongoing sinus rhythm, no recurrent atrial arrhythmias, no ventricular tachycardia. ICD function: ICD was interrogated, reported in the chart, is a normal functioning device following the ablation. DISCHARGE RECOMMENDATIONS: No soaking baths or lifting more than 10 pounds for 1 week. No driving for 2 days. Continue oral anticoagulation with Xarelto without any interruption. Contact [facility] with any postablation concerns or questions. Follow up in 6 weeks or sooner if symptoms dictate. There is an appointment scheduled. The patient has been made aware of. DISCHARGE MEDICATIONS: Resuming home medications of; 1. Topamax 25 mg p.o. b.i.d. 2. Xarelto 25 mg daily. 3. Coreg 6.25 mg p.o. b.i.d. 4. Catapres 0.1 mg p.o. as needed. 5. Colace 100 mg p.o. as needed. 6. Flexeril 10 mg p.o. t.i.d. as needed. 7. Atenolol 50 mg p.o. b.i.d. 8. Aspirin 81 mg daily. 9. Amlodipine 10 mg daily. 10. Fluoxetine 40 mg daily. 11. Protonix 40 mg daily. 12. NitroMist sublingual as needed. 13. Minoxidil 10 mg p.o. b.i.d. 14. Lisinopril 40 mg daily. New prescriptions called in include; 1. Carafate 1 g p.o. before meals and at bedtime x2 weeks. 2. Furosemide 40 mg p.o. daily p.r.n. shortness of breath, weight gain, or fluid retention, to be taken with potassium chloride 20 mEq p.o. daily only when taking Lasix. CONDITION AT DISCHARGE: Stable. Job ID: [id number]
--- NOTE | 2019-03-14 12:03 | EKG ---
Test Reason : Blood Pressure : / mmHG Vent. Rate : 078 BPM Atrial Rate : 078 BPM P-R Int : 178 ms QRS Dur : 094 ms QT Int : 398 ms P-R-T Axes : 042 001 019 degrees QTc Int : 453 ms Normal sinus rhythm T wave abnormality, consider lateral ischemia Abnormal ECG No previous ECGs available Confirmed by DR. Bob MURRELL ([id number]) on 03/14/2019 12:02:45 PM Referred By: [facility] Confirmed By:DR. Bob MURRELL
== END 2019-03-13 12:15 | disposition home or self-care (01) ==
LOC: CCL 05:34 → 2SW 13:35
PROVIDERS: ADMIT Internal Medicine Cardiovascular Disease; ATTEND Internal Medicine Cardiovascular Disease
PROC: 4A023FZ Measurement of Cardiac Rhythm, Percutaneous Approach (ICD-10-PCS; principal; 2019-03-12)
PROC: 4A0234Z Measurement of Cardiac Electrical Activity, Percutaneous Approach (ICD-10-PCS; 2019-03-12)
PROC: 02583ZZ Destruction of Conduction Mechanism, Percutaneous Approach (ICD-10-PCS; 2019-03-12)
DX: I48.0 Paroxysmal atrial fibrillation (principal); I47.2 Ventricular tachycardia; I11.0 Hypertensive heart disease with heart failure; I50.9 Heart failure, unspecified; I42.9 Cardiomyopathy, unspecified; I49.5 Sick sinus syndrome; G93.6 Cerebral edema; Z95.810 Presence of automatic (implantable) cardiac defibrillator; Z86.73 Personal history of transient ischemic attack (TIA), and cerebral infarction without residual deficits; Z91.040 Latex allergy status; Z91.048 Other nonmedicinal substance allergy status; Z79.01 Long term (current) use of anticoagulants; Z79.82 Long term (current) use of aspirin; Z79.899 Other long term (current) drug therapy
CPT/HCPCS: 76942; 85347 ×2; 93005 ×2; 93613; 93622; 93623; 93656; 93657; 93662; C1731; C1732 ×3; C1759; C1769; G0378; 93010; J1644; J2370; J2405; J2704; J2720; J3010; J3490

== ENCOUNTER 2020-02-19 08:44 | Outpatient (CLI) | payer MEDICARE ==
--- NOTE | 2020-02-19 09:34 | ULT ---
THYROID ULTRASOUND: COMPARISON: 08/31/2011. HISTORY: Thyroid nodule. FINDINGS: Right thyroid lobe measures 4.8 x 2.6 x 2.4 cm. Left thyroid lobe measures 3.9 x 0.9 x 1.1 cm. Thyroid isthmus is 0.6 cm. Thyroid nodules: Thyroid isthmus and left thyroid lobe: Multiple subcentimeter solid nodules. There is a solid 1.1 x 1 .0 x 1.0 cm nodule in the isthmus. Right thyroid lobe: 2.7 x 2.2 x 1 1.8 cm solid nodule. Previously, this nodule measured 2.8 x 1.8 x 2 .1 cm. Patient states that the nodule has been previously biopsied. IMPRESSION: Stable solid nodule in the right lower lobe which has been previously biopsied. Correlation with prev ious biopsy report is recommended. Solid nodule in thyroid isthmus with TIRADS Category 3, mildly suspicious. Followup imaging in 1 year if clinically warranted. Transcribed Date/Time: 02/19/2020 12:38 PM
== END 2020-02-19 08:45 | disposition home or self-care (01) ==
LOC: BICULT 08:44
PROVIDERS: ATTEND Internal Medicine
DX: E04.1 Nontoxic single thyroid nodule (principal)
CPT/HCPCS: 76536; 81003; 82570; 84156

== ENCOUNTER 2020-05-14 16:00 | Inpatient (IN) | payer MEDICARE ==
[2020-05-14 16:32] LABS: #Basophils 0.1 thou/uL (0.0-0.2); #Eosinphils 0.3 thou/uL (0.0-0.7); #Lymphocytes 4.3 thou/uL (1.20-3.40); #Monocytes 0.6 thou/uL (0.11-0.59); #Neutrophils 4.6 thou/uL (1.40-6.50); %Basophils 1.4 % (0.0-1.0); %Eosinophils 2.6 % (0.0-10.0); %Lymphocytes 43.5 % (21.0-51.0); %Monocytes 5.8 % (0.0-10.0); %Neutrophils 46.6 % (42.0-75.0); Mean Corpuscular HGB CONC 33.2 g/dL (32.0-36.0); Mean Corpuscular Hemoglobin 29.7 pg (27.0-31.0); Mean Corpuscular Volume 89.3 fL (78.0-98.0); Mean Platelet Volume 8.2 fL (7.4-10.4); Platelet Count 288 thou/uL (130-400); RBC Distribution Width 11.7 % (11.5-14.5); Red Blood Cell (RBC) Count 4.74 mill/uL (4.20-5.40); White Blood Cell (WBC) Count 9.8 thou/uL (4.8-10.8)
[2020-05-14 16:52] LABS: ALT (SGPT) 9 U/L (8-55); AST (SGOT) 24 U/L (5-34); Albumin 3.9 g/dL (3.5-5.0); Alkaline Phosphatase 104 U/L (40-110); Anion Gap 12 mmol/L (10-20); BUN (Urea Nitrogen) 11 mg/dL (9.8-20.1); Bilirubin, Total 0.5 mg/dL (0.2-1.2); CK (CPK) 421 U/L (29-168); Calc. Creatinine Clearance 0 mL/min (70-130); Calcium 9.3 mg/dL (7.8-10.44); Carbon Dioxide 23 mmol/L (22-29); Chloride 110 mmol/L (98-107); Estimated GFR-MDRD 89; Globulin 3.6 g/dL (2.4-3.5); Glucose 172 mg/dL (70-105); Magnesium 1.6 mg/dL (1.6-2.6); Protein, Total 7.5 g/dL (6.0-8.3); Sodium 142 mmol/L (136-145)
[2020-05-14 16:54] LABS: Potassium 2.6 mmol/L (3.5-5.1)
[2020-05-14] MEDS ORDERED: Potassium Chloride 20 MEQ TAB ONE (16:56)
--- NOTE | 2020-05-14 16:58 | RAD ---
XR Chest 1 View Portable HISTORY: Supraventricular tachycardia COMPARISON: 04/13/2018 FINDINGS: The heart size enlarged. Left-sided AICD remains in place. The lungs are well expanded without lobar consolidation, pneumothoraces, christian pulmonary edema or pleural effusions. IMPRESSION: No radiographic evidence of acute cardiopulmonary process.
[2020-05-14] MEDS ORDERED: Magnesium 2 GM/50 ML BAG (IN WATER) ONE (17:04)
[2020-05-14] MEDS ORDERED: Potassium Chloride 40 MEQ in Sodium Chloride 0.9% 250 ML 250 ML IVPB SCH (17:15)
[2020-05-14] MEDS ORDERED: Amiodarone 450 MG, Admixture Fee 1 EACH in Dextrose 5% in Water 250 ML IVPB SCH (18:30)
[2020-05-14] MEDS ORDERED: Acetaminophen 325 MG TAB PO PRN (19:24)
[2020-05-14] MEDS ORDERED: traMADol HCl 50 MG TAB PO PRN (19:37)
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
[2020-05-14] MEDS ORDERED: Carvedilol 6.25 MG TAB PO SCH (21:00)
[2020-05-14 21:03] LABS: Troponin I 7.924 ng/mL (< 0.028)
[2020-05-14 22:44] LABS: Critical Call Chem Troponin I RESULT DECREASING
[2020-05-15] MEDS: Minoxidil 10 MG TAB PO SCH ×3 (02:00→21:14)
[2020-05-15] MEDS: Topiramate 25 MG TAB PO SCH ×3 (02:00→21:14)
[2020-05-15] MEDS: Metoprolol Tartrate 100 MG TAB PO SCH ×3 (02:00→21:14)
[2020-05-15 02:13] VITALS: BMI 39.5
[2020-05-15] MEDS ORDERED: Labetalol HCl 100 MG/20 ML VIAL SLOW IVP PRN (02:50)
[2020-05-15] MEDS ORDERED: hydrALAZINE 20 MG/ML VIAL SLOW IVP PRN (02:50)
[2020-05-15] MEDS ORDERED: Metoprolol Tartrate 100 MG TAB PO SCH (03:00)
[2020-05-15 04:35] LABS: Anion Gap 11 mmol/L (10-20); BUN (Urea Nitrogen) 10 mg/dL (9.8-20.1); Calc. Creatinine Clearance 158 mL/min (70-130); Calcium 9.2 mg/dL (7.8-10.44); Carbon Dioxide 24 mmol/L (22-29); Chloride 110 mmol/L (98-107); Estimated GFR-MDRD Greater than 90; Glucose 98 mg/dL (70-105); Potassium 3.8 mmol/L (3.5-5.1); Sodium 141 mmol/L (136-145)
[2020-05-15] MEDS: Aspirin 81 mg Enteric Coated Tablet PO SCH (09:58)
[2020-05-15] MEDS: Lisinopril 20 MG TAB PO SCH (09:59)
[2020-05-15] MEDS: FLUoxetine HCl 20 MG CAP PO SCH (09:59)
--- NOTE | 2020-05-15 14:00 | CON ---
DATE OF CONSULTATION: 05/15/2020 HISTORY OF PRESENT ILLNESS: A 54-year-old obese female who presented to the ER with defibrillator multiple discharges. She is now in the ICU. EP is going to see her tomorrow for additional investigation. This morning, she is awake, alert, and responsive. She is a former smoker. She denies any history of coughing or wheezing today. She is going to have rapid coronavirus testing done. PAST MEDICAL HISTORY: 1. CVA. 2. Anemia. 3. CHF. 4. ND. 5. Cardiac arrhythmias. PREVIOUS SURGERIES: 1. . 2. Angioplasty. 3. Pacemaker. SOCIAL HISTORY: Tobacco abuse in the past. No alcohol or drug abuse. HOME MEDICATIONS: Include: 1. Catapres 0.1. 2. Topamax 25. 3. Minoxidil 20 twice a day. 4. Lisinopril 40 b.i.d. 5. Prozac 40 once a day. 6. Atenolol 50 twice a day. 7. Aspirin . ALLERGIES: NO MEDICATION. PHYSICAL EXAMINATION: GENERAL: She is in the ICU, in no acute distress. VITAL SIGNS: Saturations are 99% on room air .Blood pressure 135/47, respiration rate of 18. CHEST: No wheezing. No crackles. CARDIAC: Normal S1 and S2. No gallops. ABDOMEN: No masses. DIAGNOSTIC STUDIES: X-ray is normal. Lytes are normal. White count 9000, hemoglobin and hematocrit are 14 and 42. CK-MB was 16, troponin is elevated 7.1. BNP is normal. ASSESSMENT: 1. Multiple cardiac shocks. 2. Cardiomyopathy. 3. Former smoker. PLAN: Pulmonary/Critical Care is going to follow while in the ICU. At this stage, nothing much to offer. Workup as per Cardiology. TIME SPENT: 70 minutes spent, 50% in direct patient care. Job ID: [id number]
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
--- NOTE | 2020-05-15 14:35 | PDOC.HOSPP ---
- Subjective Encounter Date: 05/15/20 Subjective: Patient is doing well. She has no complaints today. She has had no further problems from her defibrillator. - Objective Vital Signs & Weight: Vital Signs (12 hours) Temp BP Pulse Ox 05/15/20 12:00 98.2 F 05/15/20 09:59 136/55 L 05/15/20 08:00 97.9 F 05/15/20 07:54 99 05/15/20 04:00 98.2 F Weight Weight 223 lb 1.725 oz Most Recent Monitor Data Heart Rate from ECG 63 NIBP 108/65 NIBP BP-Mean 92 Respiration from ECG 17 SpO2 100 I&O: 05/14/20 05/15/20 05/16/20 06:59 06:59 06:59 Intake Total 0 900 Output Total 0 0 Balance 0 900 Result Diagrams: 05/14/20 16:23 05/15/20 03:02 Hospitalist ROS - Medication Medications: Active Medications Generic Name Dose Route Start Last Admin Trade Name Venkateshq PRN Reason Stop Dose Admin Aspirin 81 mg 05/15/20 09:00 05/15/20 09:58 Ecotrin PO 81 mg DAILY CHANDLER Administration Fluoxetine HCl 20 mg 05/15/20 09:00 05/15/20 09:59 Prozac PO 20 mg DAILY CHANDLER Administration Lisinopril 40 mg 05/15/20 09:00 05/15/20 09:59 Zestril PO 40 mg DAILY CHANDLER Administration Metoprolol Tartrate 100 mg 05/14/20 21:00 05/15/20 09:59 Lopressor PO 100 mg BID CHANDLER Administration Minoxidil 20 mg 05/14/20 21:00 05/15/20 09:59 Minoxidil PO 20 mg BID CHANDLER Administration Topiramate 25 mg 05/14/20 21:00 05/15/20 09:59 Topamax PO 25 mg BID CHANDLER Administration - Exam General Appearance: NAD, awake alert Heart: RRR, no murmur, no gallops, no rubs, normal peripheral pulses Respiratory: CTAB, no wheezes, no rales, no ronchi, normal chest expansion, no tachypnea, normal percussion Gastrointestinal: soft, non-tender, non-distended, normal bowel sounds, no palpable masses, no hepatomegaly, no splenomegaly, no bruit Extremities: no cyanosis, no clubbing, no edema Psychiatric: normal affect, normal behavior, A&O x 3 Hosp A/P (1) AICD lead malfunction Code(s): T82.110A - BREAKDOWN (MECHANICAL) OF CARDIAC ELECTRODE, INIT ENCNTR Status: Acute (2) Defibrillator discharge Code(s): Z45.02 - ENCNTR FOR ADJUST AND MGMT OF AUTOMATIC IMPLNTBL CARD DEFIB Status: Acute (3) Elevated troponin Code(s): R79.89 - OTHER SPECIFIED ABNORMAL FINDINGS OF BLOOD CHEMISTRY Status : Acute (4) Hx of ventricular fibrillation Code(s): Z86.79 - PERSONAL HISTORY OF OTHER DISEASES OF THE CIRCULATORY SYSTEM Status: Acute (5) CAD (coronary artery disease) Code(s): I25.10 - ATHSCL HEART DISEASE OF [place] CORONARY ARTERY W/O ANG PCTRS Status: Acute (6) Hypokalemia Code(s): E87.6 - HYPOKALEMIA Status: Acute - Plan Patient is stable. Her AICD lead is malfunctioning causing abnormal discharges. That modality has been turned off. The plan is for lead exchange tomorrow. Her potassium has been repleted appropriately. We will transfer to the telemetry floor and continue current plan. Her troponin did elevate significantly secondary to the trauma associated with the multiple discharges of the AICD.
[2020-05-16] MEDS ORDERED: Gentamicin 80 MG/2 ML VIAL ONE ×2 (09:24→12:04)
[2020-05-16] MEDS ORDERED: Heparin 0 ML ONE (09:24)
[2020-05-16] MEDS ORDERED: CEFAZOLIN 1 GM VIAL ONE ×2 (09:24→12:04)
[2020-05-16] MEDS ORDERED: Fentanyl 100 MCG/2 ML VIAL ONE (09:42)
[2020-05-16] MEDS ORDERED: Midazolam HCl 2 mg/2 ml Vial ONE (09:43)
[2020-05-16] MEDS ORDERED: PROPOFOL 200 MG/20 ML VIAL ONE (10:19)
[2020-05-16] MEDS ORDERED: Ondansetron PF 4 MG/2 ML Vial ONE (10:19)
[2020-05-16] MEDS ORDERED: Lidocaine 1% PF 5 ML VIAL ONE (10:19)
[2020-05-16] MEDS ORDERED: Ondansetron HCl/PF 4 MG/2 ML Vial IVP PRN (10:46)
[2020-05-16] MEDS ORDERED: Promethazine HCl 25 MG/ML VIAL IM PRN (10:46)
[2020-05-16] MEDS ORDERED: Promethazine HCl 25 MG/ML VIAL SLOW IVP PRN (10:46)
[2020-05-16 11:45] LABS: SARS-CoV-2 MS2 Positive; SARS-CoV-2 N Gene Negative; SARS-CoV-2 S Gene Negative; SARS-CoV-2 orf1ab Negative
[2020-05-16] MEDS ORDERED: Iopamidol 370 76% 50 ML VIAL FS ONE (11:54)
--- NOTE | 2020-05-16 12:05 | RAD ---
PORTABLE CHEST 1 VIEW: Date: 05/16/2020 Time: 1150 hours HISTORY: Post cardiac device placement. COMPARISON: 05/14/2020. FINDINGS/IMPRESSION: The heart size is enlarged. A left-sided AICD is present. No lobar consolidation, pneumothoraces, fra nk pulmonary edema, or large effusions are identified. POS: AH
--- NOTE | 2020-05-16 12:33 | PDOC.CPN ---
- Subjective Date: 05/16/20 Time: 12:31 Interval history: She had her AICD revised today. No new issues. On my evaluation she is still groggy from anesthesia. - Review of Systems ROS unobtainable: due to mental status - Objective Allergies/Adverse Reactions: Allergies Allergy/AdvReac Type Severity Reaction Status Date / Time latex Allergy Intermediate Rash Verified 05/15/20 02:15 NATURAL RUBBER Allergy Intermediate Uncoded 05/15/20 02:15 Visit Medications: Current Medications Acetaminophen (Tylenol) 650 mg PO Q4H PRN PRN Reason: Headache/Fever/Mild Pain (1-3) Aspirin (Ecotrin) 81 mg PO DAILY ON LICENSE OF [facility] Last Admin: 05/15/20 09:58 Dose: 81 mg Cephalexin (Keflex) 500 mg PO TID ON LICENSE OF [facility] Stop: 05/23/20 15:01 Fentanyl (Pacu-Sublimaze) 50 mcg SLOW IVP Q10MIN PRN PRN Reason: Moderate to Severe Pain (6-10) Stop: 05/16/20 13:47 Fluoxetine HCl (Prozac) 20 mg PO DAILY ON LICENSE OF [facility] Last Admin: 05/15/20 09:59 Dose: 20 mg Hydralazine HCl (Apresoline) 10 mg SLOW IVP Q4H PRN PRN Reason: SBP > 180 Labetalol HCl (Normodyne) 10 mg SLOW IVP Q4H PRN PRN Reason: SBP > 180 Lisinopril (Zestril) 40 mg PO DAILY ON LICENSE OF [facility] Last Admin: 05/15/20 09:59 Dose: 40 mg Metoprolol Tartrate (Lopressor) 100 mg PO BID ON LICENSE OF [facility] Last Admin: 05/15/20 21:14 Dose: 100 mg Minoxidil (Minoxidil) 20 mg PO BID ON LICENSE OF [facility] Last Admin: 05/15/20 21:14 Dose: 20 mg Ondansetron HCl (Pacu-Zofran) 4 mg IVP ONE PRN PRN Reason: Nausea/Vomiting Stop: 05/16/20 13:47 Promethazine HCl (Pacu-Phenergan) 6.25 mg SLOW IVP ONE PRN PRN Reason: Nausea/Vomiting Stop: 05/16/20 13:47 Promethazine HCl (Pacu-Phenergan) 6.25 mg IM ONE PRN PRN Reason: Nausea/Vomiting Stop: 05/16/20 13:47 Topiramate (Topamax) 25 mg PO BID CHANDLER Last Admin: 05/15/20 21:14 Dose: 25 mg Tramadol HCl (Ultram) 50 mg PO Q6H PRN PRN Reason: Pain 4-6 Vital Signs & Weight: Vital Signs Temp Pulse Resp BP Pulse Ox 05/16/20 07:29 98.0 F 63 16 114/55 L 99 05/16/20 02:55 99.4 F 62 18 104/50 L 99 Weight 223 lb 1.725 oz - Physical Exam General: no apparent distress HEENT: mucus membranes moist Neck: supple neck Cardiac: regular rate and rhythm Lungs: clear to auscultation Neuro: grossly intact Abdomen: active bowel sounds Extremities: no edema Skin: clear Musculoskeletal: no pain - Labs Result Diagrams: 05/14/20 16:23 05/15/20 03:02 Troponin/CKMB CK-MB (CK-2) 16.0 ng/mL (0-6.6) H* 05/14/20 16:23 Troponin I 7.140 ng/mL (< 0.028) H* 05/14/20 22:07 - Telemetry Sinus rhythms and dysrhythmias: sinus rhythm - Assessment/Plan Assessment/Plan: 1. Innapropriate AICD shocks 2. NICM, last EF normalized. echo pending PLAN: - May discharge tomorrow if no issue arise. - Follow up in the office in 1-2 months telemed.
[2020-05-16] MEDS: FLUoxetine HCl 20 MG CAP PO SCH (12:54)
[2020-05-16] MEDS: Topiramate 25 MG TAB PO SCH ×2 (12:54→20:55)
[2020-05-16] MEDS: Metoprolol Tartrate 100 MG TAB PO SCH ×2 (12:54→20:55)
[2020-05-16] MEDS: Aspirin 81 mg Enteric Coated Tablet PO SCH (12:54)
[2020-05-16] MEDS: Lisinopril 20 MG TAB PO SCH (12:54)
[2020-05-16] MEDS: Minoxidil 10 MG TAB PO SCH ×2 (12:54→20:55)
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
[2020-05-16] MEDS: Cephalexin 250 MG CAP PO SCH ×2 (15:33→20:55)
[2020-05-17 08:40] VITALS: TEMP 98.3
[2020-05-17] MEDS: Aspirin 81 mg Enteric Coated Tablet PO SCH (08:40)
[2020-05-17] MEDS: Cephalexin 250 MG CAP PO SCH (08:40)
[2020-05-17] MEDS: Topiramate 25 MG TAB PO SCH (08:41)
[2020-05-17] MEDS: FLUoxetine HCl 20 MG CAP PO SCH (08:41)
[2020-05-17] MEDS: Lisinopril 20 MG TAB PO SCH (09:34)
[2020-05-17 09:35] VITALS: BP 136/55
[2020-05-17] MEDS: Metoprolol Tartrate 100 MG TAB PO SCH (09:39)
[2020-05-17] MEDS: Minoxidil 10 MG TAB PO SCH (09:39)
--- NOTE | 2020-05-17 09:39 | PDOC.CPN ---
- Subjective Date: 05/17/20 Time: 09:30 Interval history: Ms. Ervin is awake, feels well and is ready to go home. She denies acute cardiac complaints or concerns. Incision to left SC looks good, no drainage, she denies any discomfort. Discussed importance of follow-up with Dr. Tamayo. Reviewed telemetry, no overnight events. - Review of Systems General: denies: fever/chills, weight/appetite/sleep changes, night sweats, fatigue Respiratory: denies: cough, congestion, shortness of breath, exercise intolerance Cardiovascular: denies: chest pain, palpitation, edema, paroxysmal nocturnal dyspnea, orthopnea Gastrointestinal: denies: nausea, vomiting, diarrhea, constipation, abd pain, GI bleeding - Objective Allergies/Adverse Reactions: Allergies Allergy/AdvReac Type Severity Reaction Status Date / Time latex Allergy Intermediate Rash Verified 05/15/20 02:15 NATURAL RUBBER Allergy Intermediate Uncoded 05/15/20 02:15 Visit Medications: Current Medications Acetaminophen (Tylenol) 650 mg PO Q4H PRN PRN Reason: Headache/Fever/Mild Pain (1-3) Aspirin (Ecotrin) 81 mg PO DAILY [facility] Last Admin: 05/17/20 08:40 Dose: 81 mg Cephalexin (Keflex) 500 mg PO TID [facility] Stop: 05/23/20 15:01 Last Admin: 05/17/20 08:40 Dose: 500 mg Fluoxetine HCl (Prozac) 20 mg PO DAILY [facility] Last Admin: 05/17/20 08:41 Dose: 20 mg Hydralazine HCl (Apresoline) 10 mg SLOW IVP Q4H PRN PRN Reason: SBP > 180 Labetalol HCl (Normodyne) 10 mg SLOW IVP Q4H PRN PRN Reason: SBP > 180 Lisinopril (Zestril) 40 mg PO DAILY [facility] Last Admin: 05/16/20 12:54 Dose: Not Given Metoprolol Tartrate (Lopressor) 100 mg PO BID [facility] Last Admin: 05/16/20 20:55 Dose: 100 mg Minoxidil (Minoxidil) 20 mg PO BID [facility] Last Admin: 05/16/20 20:55 Dose: 20 mg Sodium Chloride (Flush - Normal Saline) 10 ml IVF PRN PRN PRN Reason: Saline Flush Topiramate (Topamax) 25 mg PO BID [facility] Last Admin: 05/17/20 08:41 Dose: 25 mg Tramadol HCl (Ultram) 50 mg PO Q6H PRN PRN Reason: Pain 4-6 Vital Signs & Weight: Vital Signs Temp Pulse Resp BP Pulse Ox 05/17/20 08:36 98.3 F 67 16 110/54 L 99 05/17/20 04:45 98.8 F 69 18 114/53 L 96 05/17/20 01:40 100 05/16/20 23:20 71 130/63 Weight 237 lb 8 oz - Quality Measures CV meds: Beta Elizabeth: Yes, FABRIZIO/ARB: Yes, Statin: No, ASA: Yes, Plavix/Effient/ Brilinta: No, Anticoagulant: No - Medication Contraindications No Antithrombotic reason: Treatment not indicated No Anticoagulant reason: Treatment not indicated - Physical Exam General: alert & oriented x3, appears well, no apparent distress, other (obese) HEENT: mucus membranes moist Neck: supple neck, no JVD/HJR Cardiac: regular rate and rhythm, no murmur, S1/S2 Lungs: clear to auscultation, normal breath sounds Neuro: grossly intact Abdomen: unremarkable Extremities: no cyanosis, no clubbing, no edema Skin: clear - Labs Result Diagrams: 05/14/20 16:23 05/17/20 09:42 Troponin/CKMB CK-MB (CK-2) 16.0 ng/mL (0-6.6) H* 05/14/20 16:23 Troponin I 7.140 ng/mL (< 0.028) H* 05/14/20 22:07 - Telemetry Sinus rhythms and dysrhythmias: sinus rhythm - Assessment/Plan Assessment/Plan: Assessment: 1. Inappropriate AICD shocks-s/p RV lead revision 05/16/20 2. NICM 3. Hypokalemia-resolved, K+ 4.1 this am 4. Obesity Normal coronaries per [facility] 2014 PLAN: - Echocardiogram shows stable EF, now 55-60%, moderate LVH, grade 3 DD, moderate LAE. - Home on current medications. Hold amlodipine for now. - Follow up in the office in [address] Tamayo. EP 2 weeks for device check.
[2020-05-17 10:20] LABS: Anion Gap 12 mmol/L (10-20); BUN (Urea Nitrogen) 11 mg/dL (9.8-20.1); Calc. Creatinine Clearance 166 mL/min (70-130); Calcium 9.1 mg/dL (7.8-10.44); Carbon Dioxide 21 mmol/L (22-29); Chloride 108 mmol/L (98-107); Estimated GFR-MDRD Greater than 90; Glucose 101 mg/dL (70-105); Potassium 4.1 mmol/L (3.5-5.1); Sodium 137 mmol/L (136-145)
--- NOTE | 2020-05-17 11:32 | DIS ---
DATE OF ADMISSION: 05/14/2020 DATE OF DISCHARGE: 05/17/2020 PRIMARY CARE PROVIDER: Dr. Lyndsey Mohamud. DISCHARGE DIAGNOSES: 1. Automated implantable cardioverter defibrillator lead malfunction. 2. Defibrillator discharge. 3. Elevated troponin. 4. Hypokalemia. CONDITION OF PATIENT ON THE DAY OF DISCHARGE: Stable. I assessed Ms. Ervin on the day of discharge. She denies any chest pain or shortness of breath. Vital signs are stable. S1 and S2 are heard, regular. Lungs are clear to auscultation bilaterally. CONSULTATIONS DURING THIS HOSPITALIZATION: 1. Pulmonary and Critical Care Medicine, Dr. Bess. 2. Cardiology, Dr. Tamayo. 3. Electrophysiology, Dr. Alicia. DISCHARGE MEDICATIONS: 1. Nitroglycerin p.r.n. 2. Aspirin 81 mg daily. 3. Clonidine p.r.n. 4. Minoxidil 20 mg two times a day. 5. Cephalexin 500 mg three times a day for 1 week. 6. Prozac 20 mg daily. 7. Lisinopril 40 mg at bedtime. 8. Lopressor 100 mg two times a day. 9. Topiramate 25 mg two times a day as needed. HOSPITAL COURSE: Ms. Ervin is a pleasant 54-year-old lady, who was admitted to [facility] on May 14, 2020, for AICD lead malfunction and ICD firing. She was admitted to the CCU. She was seen by Pulmonary and Critical Care Medicine, Cardiology, and Electrophysiology Services. She underwent ICD lead revision. She is being discharged home in a stable condition. POST-ACUTE CARE FOLLOWUP: With primary care provider in 3 days and with Cardiology, Dr. Tamayo in [address] Alicia in 2 weeks. ACTIVITY: No restrictions. DIET: Heart healthy diet. DISCHARGE DESTINATION: Home. TIME SPENT: Total amount of time spent coordinating this discharge: 32 minutes. Job ID: [id number]
== END 2020-05-17 11:48 | disposition home or self-care (01) | DRG 227 ==
LOC: ERS 16:00 → ERHOLD 17:31 → CCU 05-15 02:04 → 2NO 05-15 14:32
PROVIDERS: ADMIT Internal Medicine; ATTEND Internal Medicine
PROC: 0JH608Z Insertion of Defibrillator Generator into Chest Subcutaneous Tissue and Fascia, Open Approach (ICD-10-PCS; principal; 2020-05-16)
PROC: 02HK3KZ Insertion of Defibrillator Lead into Right Ventricle, Percutaneous Approach (ICD-10-PCS; 2020-05-16)
PROC: 0JPT0PZ Removal of Cardiac Rhythm Related Device from Trunk Subcutaneous Tissue and Fascia, Open Approach (ICD-10-PCS; 2020-05-16)
PROC: 02PA3MZ Removal of Cardiac Lead from Heart, Percutaneous Approach (ICD-10-PCS; 2020-05-16)
DX: T82.110A Breakdown (mechanical) of cardiac electrode, initial encounter (principal); I47.2 Ventricular tachycardia; Z68.41 Body mass index [BMI] 40.0-44.9, adult; I42.8 Other cardiomyopathies; I13.0 Hypertensive heart and chronic kidney disease with heart failure and stage 1 through stage 4 chronic kidney disease, or unspecified chronic kidney disease; I50.32 Chronic diastolic (congestive) heart failure; Z11.59 Encounter for screening for other viral diseases; E87.6 Hypokalemia; R13.10 Dysphagia, unspecified; D50.9 Iron deficiency anemia, unspecified; Y83.1 Surgical operation with implant of artificial internal device as the cause of abnormal reaction of the patient, or of later complication, without mention of misadventure at the time of the procedure; R79.89 Other specified abnormal findings of blood chemistry; I25.10 Atherosclerotic heart disease of native coronary artery without angina pectoris; E66.9 Obesity, unspecified; N18.3 Chronic kidney disease, stage 3 (moderate); I48.0 Paroxysmal atrial fibrillation; I49.5 Sick sinus syndrome; F32.9 Major depressive disorder, single episode, unspecified; F41.9 Anxiety disorder, unspecified; Z91.040 Latex allergy status; I69.391 Dysphagia following cerebral infarction; I69.312 Visuospatial deficit and spatial neglect following cerebral infarction; I25.2 Old myocardial infarction; Z87.891 Personal history of nicotine dependence; Z79.899 Other long term (current) drug therapy
CPT/HCPCS: 33217; 33228; 36005; 36415; 71045; 75820; 76942; 80048; 80053; 82550; 82553; 83735; 83880; 84484; 85025; 87635; 93005; 93306; 96361; 96374; 96375; J0282; J0690; J1580; J1644; J2250; J2405; J2704; J3010; J3475; J3480; J7050; J7070; Q9967; U0003

== ENCOUNTER 2022-05-28 08:32 | Emergency (ER) | payer MEDICARE, OTHER ==
[2022-05-28 09:12] LABS: #Basophils 0.1 thou/uL (0.0-0.2); #Eosinphils 0.2 thou/uL (0.0-0.7); #Lymphocytes 2.8 thou/uL (1.20-3.40); #Monocytes 0.5 thou/uL (0.11-0.59); #Neutrophils 3.3 thou/uL (1.40-6.50); %Basophils 0.8 % (0.0-1.0); %Eosinophils 2.2 % (0.0-10.0); %Monocytes 6.8 % (0.0-10.0); %Neutrophils 49.3 % (42.0-75.0); Hemoglobin 15.4 g/dL (12.0-16.0); Mean Corpuscular HGB CONC 33.2 g/dL (32.0-36.0); Mean Corpuscular Hemoglobin 30.6 pg (27.0-31.0); Mean Corpuscular Volume 92.3 fL (78.0-98.0); Mean Platelet Volume 7.9 fL (7.4-10.4); Platelet Count 254 thou/uL (130-400); RBC Distribution Width 11.9 % (11.5-14.5); Red Blood Cell (RBC) Count 5.03 mill/uL (4.20-5.40); White Blood Cell (WBC) Count 6.8 thou/uL (4.8-10.8)
[2022-05-28 09:34] LABS: ALT (SGPT) 7 U/L (8-55); AST (SGOT) 17 U/L (5-34); Albumin 3.8 g/dL (3.5-5.0); Alkaline Phosphatase 102 U/L (40-110); Anion Gap 12 mmol/L (10-20); BUN (Urea Nitrogen) 6 mg/dL (9.8-20.1); Bilirubin, Total 0.6 mg/dL (0.2-1.2); Calc. Creatinine Clearance 0 mL/min (70-130); Calcium 9.5 mg/dL (7.8-10.44); Carbon Dioxide 26 mmol/L (22-29); Chloride 107 mmol/L (98-107); Estimated GFR 95; Glucose 106 mg/dL (70-105); Magnesium 1.8 mg/dL (1.6-2.6); Potassium 3.8 mmol/L (3.5-5.1); Protein, Total 7.8 g/dL (6.0-8.3); Sodium 141 mmol/L (136-145)
== END 2022-05-28 11:00 | disposition home or self-care (01) ==
LOC: ERS 08:32
DX: I48.91 Unspecified atrial fibrillation (principal); Z86.73 Personal history of transient ischemic attack (TIA), and cerebral infarction without residual deficits; D50.0 Iron deficiency anemia secondary to blood loss (chronic); I50.9 Heart failure, unspecified; F17.210 Nicotine dependence, cigarettes, uncomplicated; Z79.899 Other long term (current) drug therapy; Z79.84 Long term (current) use of oral hypoglycemic drugs; Z79.82 Long term (current) use of aspirin
CPT/HCPCS: 71045; 80053; 83735; 83880; 84484; 85025; 93005

== ENCOUNTER 2022-07-30 21:44 | Emergency (ER) | payer OTHER ==
[2022-07-30 23:28] LABS: ALT (SGPT) Less than 7 U/L (8-55); AST (SGOT) 14 U/L (5-34); Albumin 3.5 g/dL (3.5-5.0); Alkaline Phosphatase 117 U/L (40-110); Anion Gap 10 mmol/L (10-20); BUN (Urea Nitrogen) 13 mg/dL (9.8-20.1); Bilirubin, Total 0.2 mg/dL (0.2-1.2); Calc. Creatinine Clearance 0 mL/min (70-130); Calcium 9.3 mg/dL (7.8-10.44); Carbon Dioxide 26 mmol/L (22-29); Chloride 108 mmol/L (98-107); Estimated GFR 78; Globulin 3.6 g/dL (2.4-3.5); Glucose 116 mg/dL (70-105); Potassium 4.3 mmol/L (3.5-5.1); Protein, Total 7.1 g/dL (6.0-8.3); Sodium 140 mmol/L (136-145)
[2022-07-31 01:42] LABS: #Basophils 0.1 thou/uL (0.0-0.2); #Eosinphils 0.1 thou/uL (0.0-0.7); #Lymphocytes 1.5 thou/uL (1.20-3.40); #Monocytes 0.5 thou/uL (0.11-0.59); #Neutrophils 4.7 thou/uL (1.40-6.50); %Basophils 1.1 % (0.0-1.0); %Eosinophils 1.2 % (0.0-10.0); %Lymphocytes 22.3 % (21.0-51.0); %Monocytes 6.8 % (0.0-10.0); %Neutrophils 68.6 % (42.0-75.0); Hemoglobin 13.6 g/dL (12.0-16.0); Mean Corpuscular HGB CONC 33.1 g/dL (32.0-36.0); Mean Corpuscular Hemoglobin 30.6 pg (27.0-31.0); Mean Corpuscular Volume 92.3 fL (78.0-98.0); Platelet Count 270 thou/uL (130-400); RBC Distribution Width 11.4 % (11.5-14.5); Red Blood Cell (RBC) Count 4.44 mill/uL (4.20-5.40); White Blood Cell (WBC) Count 6.8 thou/uL (4.8-10.8)
== END 2022-07-31 03:33 | disposition home or self-care (01) ==
LOC: ERS 21:44
DX: T82.199A Other mechanical complication of unspecified cardiac device, initial encounter (principal); I11.0 Hypertensive heart disease with heart failure; I50.9 Heart failure, unspecified; I25.2 Old myocardial infarction; I48.91 Unspecified atrial fibrillation; Z87.891 Personal history of nicotine dependence; Z86.73 Personal history of transient ischemic attack (TIA), and cerebral infarction without residual deficits; Z79.01 Long term (current) use of anticoagulants
CPT/HCPCS: 36415; 71046; 80048; 80076; 84443; 84484; 85025; 85027; 85610; 85730; 87811; 93005; 93010

== ENCOUNTER 2022-08-04 07:49 | Day surgery (SDC) | payer OTHER ==
[2022-08-03 14:47] VITALS: BMI 34.2
[2022-08-04] MEDS ORDERED: Heparin 25,000 units/D5W 500 ML ONE (09:25)
[2022-08-04] MEDS ORDERED: Heparin 10,000 UNITS/ 10 ML VIAL ONE ×2 (09:25→14:51)
[2022-08-04] MEDS ORDERED: Isoproterenol 0.2 MG/1 ML AMP ONE ×2 (09:32→14:51)
[2022-08-04] MEDS ORDERED: Fentanyl 100 MCG/2 ML VIAL ONE ×3 (11:10→15:04)
[2022-08-04] MEDS ORDERED: NEOSTIGMINE 3 MG/3 ML SYR 3 MG/3 ML SYRINGE ONE (11:13)
[2022-08-04] MEDS ORDERED: Glycopyrrolate 0.2 MG/ML 5 ML SYRINGE ONE (11:13)
[2022-08-04] MEDS ORDERED: PHENYLEPHRINE-NS 100 MCG/ML 10 ML SYRINGE ONE (11:13)
[2022-08-04] MEDS ORDERED: Ondansetron PF 4 MG/2 ML Vial ONE (11:13)
[2022-08-04] MEDS ORDERED: Rocuronium Bromide 10 MG/ML (10ML VIAL) ONE (11:13)
[2022-08-04] MEDS ORDERED: PROPOFOL 200 MG/20 ML VIAL ONE (11:13)
[2022-08-04] MEDS ORDERED: ePHEDrine 50 MG/ML VIAL ONE (11:13)
[2022-08-04] MEDS ORDERED: Protamine Sulfate 50 MG/5 ML VIAL ONE (15:07)
[2022-08-04] MEDS ORDERED: Ketorolac Tromethamine 30 MG/ML VIAL IVP PRN (15:50)
== END 2022-08-04 19:36 | disposition home or self-care (01) ==
LOC: SDC 07:49
PROVIDERS: ATTEND Internal Medicine Cardiovascular Disease
PROC: B244ZZ3 Ultrasonography of Right Heart, Intravascular (ICD-10-PCS; principal; 2022-08-04)
PROC: 02583ZZ Destruction of Conduction Mechanism, Percutaneous Approach (ICD-10-PCS; 2022-08-04)
PROC: 02K83ZZ Map Conduction Mechanism, Percutaneous Approach (ICD-10-PCS; 2022-08-04)
PROC: 4A023FZ Measurement of Cardiac Rhythm, Percutaneous Approach (ICD-10-PCS; 2022-08-04)
PROC: 4A0234Z Measurement of Cardiac Electrical Activity, Percutaneous Approach (ICD-10-PCS; 2022-08-04)
DX: I48.19 Other persistent atrial fibrillation (principal); I47.1 Supraventricular tachycardia; I48.92 Unspecified atrial flutter; I42.8 Other cardiomyopathies; I11.0 Hypertensive heart disease with heart failure; I50.22 Chronic systolic (congestive) heart failure; I49.5 Sick sinus syndrome; I47.20 Ventricular tachycardia, unspecified; Z86.73 Personal history of transient ischemic attack (TIA), and cerebral infarction without residual deficits; Z79.01 Long term (current) use of anticoagulants; Z79.82 Long term (current) use of aspirin; Z79.899 Other long term (current) drug therapy; Z91.040 Latex allergy status; Z95.810 Presence of automatic (implantable) cardiac defibrillator; Z87.891 Personal history of nicotine dependence
CPT/HCPCS: 85347 ×2; 93005; 93623; 93655; 93656; C1730; C1732 ×3; C1759; C1760; C1769; C1894 ×2; 93010; J1644; J2405; J2704; J2720; J3010; J3490